=== PATIENT | male | born 1960 | race Caucasian/White ===

== ENCOUNTER 2017-05-01 16:08 | Inpatient (IN) | payer MEDICARE, MEDICAID ==
[2017-05-01] MEDS ORDERED: Sodium Chloride 0.9% 10 ML Syringe FLUSH PRN ×2 (16:43→17:44)
[2017-05-01] MEDS ORDERED: Sodium Chloride 0.9% 1,000 ML IV STA (16:43)
--- NOTE | 2017-05-01 17:39 | EDM.PDOC ---
ED HPI GENERAL MEDICAL PROBLEM - General Chief Complaint: Abdominal Pain Stated Complaint: ABDOMINAL PAIN, CARDIOMYOPATHY, DEPRESSION Time Seen by Provider: 05/01/17 16:28 Source of Information: Reports: Patient History Limitations: Reports: No Limitations - History of Present Illness INITIAL COMMENTS - FREE TEXT/NARRATIVE: The patient presents with generalized abdominal pain that started today. He has nausea and vomiting with it. He denies dysuria. He has no diarrhea and his bowel movements have been less the past couple of days. He has no fever or chills. He does not have an appendix or gallbladder. He had lymphoma many years ago and they did surgery and removed them when they did surgery. He also has been depressed for the past few weeks. He has been on medications for this and there has been no changes to them. Onset: Gradual Duration: Hour(s): (This morning) Location: Reports: Abdomen Quality: Reports: Sharp Severity: Moderate Improves with: Reports: None Worsens with: Reports: None Associated Symptoms: Reports: Nausea/Vomiting. Denies: Cough, Fever/Chills, Shortness of Breath Abdominal Pain Score (Numeric/FACES): 10 - Related Data Allergies Allergy/AdvReac Type Severity Reaction Status Date / Time Dairy Products Allergy Abdominal Verified 05/01/17 16:26 Cramps eggs Allergy Other Uncoded 05/01/17 16:27 Home Meds: Home Meds Aspirin [Halfprin] 81 mg PO BRK 07/20/16 [History] ClonazePAM [KlonoPIN] 1 mg PO TID 07/20/16 [History] Cyanocobalamin (Vitamin B-12) [Vitamin B-12] 1,000 mcg PO ACBREAKFAST 07/20/16 [ History] Esomeprazole [NexIUM] 20 mg PO BID 07/20/16 [History] Levothyroxine Sodium [Levoxyl] 88 mcg PO ACBREAKFAST 07/20/16 [History] Ramipril [Altace] 5 mg PO BID 07/20/16 [History] traMADol [Ultram] 100 mg PO Q8H PRN 07/20/16 [History] Carvedilol [Coreg] 3.125 mg PO BID 05/01/17 [History] Ferrous Sulfate [Iron] 325 mg PO DAILY 05/01/17 [History] Mirtazapine 45 mg PO BEDTIME 05/01/17 [History] Venlafaxine HCl [Venlafaxine ER] 112.5 mg PO DAILY 05/01/17 [History] Past Medical History Gastrointestinal History: Reports: GERD Neurological History: Reports: Other (See Below) Other Neuro History: restless leg syndrome Psychiatric History: Reports: Anxiety Hematologic History: Reports: Anemia, B12 Deficiency - Past Surgical History HEENT Surgical History: Reports: Tonsillectomy Social & Family History - Tobacco Use Smoking Status *Q: Never Smoker Second Hand Smoke Exposure: No - Caffeine Use Caffeine Use: Reports: None - Recreational Drug Use Recreational Drug Use: No ED ROS GENERAL - Review of Systems Review Of Systems: See Below Constitutional: Reports: No Symptoms HEENT: Reports: No Symptoms Respiratory: Reports: No Symptoms Cardiovascular: Reports: No Symptoms Endocrine: Reports: No Symptoms GI/Abdominal: Reports: Abdominal Pain, Nausea, Vomiting. Denies: Diarrhea : Reports: No Symptoms Musculoskeletal: Reports: No Symptoms ED EXAM, GI/ABD - Physical Exam Exam: See Below Exam Limited By: No Limitations General Appearance: Alert, No Apparent Distress Ears: Normal External Exam Nose: Normal Inspection Head: Atraumatic, Normocephalic Neck: Normal Inspection Respiratory/Chest: No Respiratory Distress, Lungs Clear, Normal Breath Sounds Cardiovascular: Regular Rate, Rhythm, No Edema, No Murmur GI/Abdominal Exam: Soft, No Organomegaly, No Mass, Tender (Mild to moderate generalized tenderness) Course - Vital Signs Last Recorded V/S: Last Vital Signs Temp 98.4 F 05/01/17 16:27 Pulse 71 05/01/17 16:27 Resp 18 05/01/17 16:27 BP 100/63 05/01/17 16:27 Pulse Ox 97 05/01/17 16:27 - Orders/Labs/Meds Orders: Active Orders 24 hr Category Date Time Status Peripheral IV Care [RC] . DIRECTED Care 05/01/17 16:44 Active Abdomen Pelvis w Cont [CT] Stat Exams 05/01/17 16:43 Taken Sodium Chloride 0.9% @ 75 MLS/HR(1000ml Bag) Med 05/01/17 21:00 Ordered Sodium Chloride 0.9% [Normal Saline] 1,000 ml IV ASDIRECTED Sodium Chloride 0.9% [Saline Flush] Med 05/01/17 16:43 Active 10 ml FLUSH ASDIRECTED PRN Sodium Chloride 0.9% [Saline Flush] Med 05/01/17 17:44 Active 10 ml FLUSH ONETIME PRN ED Antiemetic Medication Reflex [OM.PC] Stat Oth 05/01/17 16:44 Ordered Peripheral IV Insertion Adult [OM.PC] Stat Ot 05/01/17 16:43 Ordered Medication Orders Sodium Chloride (Normal Saline) 1,000 mls @ 75 mls/hr IV ASDIRECTED [place] Sodium Chloride (Saline Flush) 10 ml FLUSH ASDIRECTED PRN PRN Reason: Keep Vein Open Last Admin: 05/01/17 17:13 Dose: 10 ml Sodium Chloride (Saline Flush) 10 ml FLUSH ONETIME PRN PRN Reason: IV FLUSH Last Admin: 05/01/17 18:16 Dose: 10 ml Labs: Laboratory Tests 05/01/17 05/01/17 05/01/17 Range/Units 16:38 16:38 17:00 WBC 7.42 (4.23-9.07) K/mm3 RBC 5.45 (4.63-6.08) M/mm3 Hgb 16.3 (13.7-17.5) gm/L Hct 48.6 (40.1-51.0) % MCV 89.2 (79.0-92.2) fl MCH 29.9 (25.7-32.2) pg MCHC 33.5 (32.2-35.5) g/dl RDW Std Deviation 44.6 H (35.1-43.9) fL Plt Count 252 (163-337) K/mm3 MPV 10.0 (9.4-12.3) fl Neut % (Auto) 66.5 (34.0-67.9) % Lymph % (Auto) 25.2 (21.8-53.1) % [place] % (Auto) 7.0 (5.3-12.2) % Eos % (Auto) 0.9 (0.8-7.0) Baso % (Auto) 0.1 (0.1-1.2) % Neut # (Auto) 4.93 (1.78-5.38) K/mm3 Lymph # (Auto) 1.87 (1.32-3.57) K/mm3 [place] # (Auto) 0.52 (0.30-0.82) K/mm3 Eos # (Auto) 0.07 (0.04-0.54) K/mm3 Baso # (Auto) 0.01 (0.01-0.08) K/mm3 Sodium 136 (136-145) mEq/L Potassium 4.6 (3.5-5.1) mEq/L Chloride 99 (98-107) mEq/L Carbon Dioxide 30 (21-32) mEq/L Anion Gap 11.6 (5-15) BUN 16 (7-18) mg/dL Creatinine 0.8 (0.7-1.3) mg/dL Est Cr Clr Drug Dosing 83.95 mL/min Estimated GFR (MDRD) > 60 (>60) mL/min BUN/Creatinine Ratio 20.0 H (14-18) Glucose 119 H (74-106) mg/dL Calcium 9.7 (8.5-10.1) mg/dL Total Bilirubin 0.6 (0.2-1.0) mg/dL AST 45 H (15-37) U/L ALT 50 (16-63) U/L Alkaline Phosphatase 275 H (46-116) U/L Total Protein 7.1 (6.4-8.2) g/dl Albumin 4.0 (3.4-5.0) g/dl Globulin 3.1 gm/dL Albumin/Globulin Ratio 1.3 (1-2) Lipase 113 (73-393) U/L Urine Color Yellow (Yellow) Urine Appearance Clear (Clear) Urine pH 6.0 (5.0-8.0) Ur Specific [place] 1.025 (1.005-1.030) Urine Protein Trace H (Negative) Urine Glucose (UA) Negative (Negative) Urine Ketones Negative (Negative) Urine Occult Blood Negative (Negative) Urine Nitrite Negative (Negative) Urine Bilirubin Negative (Negative) Urine Urobilinogen 0.2 (0.2-1.0) Ur Leukocyte Esterase Negative (Negative) Urine RBC 0-5 (0-5) /hpf Urine WBC 0-5 (0-5) /hpf Ur Epithelial Cells Not seen (0-5) /hpf Urine Bacteria Few (FEW) /hpf Urine Mucus Few (FEW) /hpf Meds: Medications Generic Name Dose Route Start Last Admin Trade Name Freq PRN Reason Stop Dose Admin Sodium Chloride 1,000 mls @ 75 mls/hr 05/01/17 21:00 Normal Saline IV ASDIRECTED [place] Sodium Chloride 10 ml 05/01/17 16:43 05/01/17 17:13 Saline Flush FLUSH 10 ml ASDIRECTED PRN Administration Keep Vein Open Sodium Chloride 10 ml 05/01/17 17:44 05/01/17 18:16 Saline Flush FLUSH 10 ml ONETIME PRN Administration IV FLUSH Discontinued Medications Generic Name Dose Route Start Last Admin Trade Name [place] PRN Reason Stop Dose Admin Diatrizoate Meglum/Diatrizoate Sod 120 ml 05/01/17 17:44 05/01/17 18:16 Gastrografin 37% PO 05/01/17 17:45 90 ml ONETIME ONE Administration Hydromorphone HCl 1 mg 05/01/17 18:05 05/01/17 18:26 Dilaudid IVPUSH 05/01/17 18:06 1 mg ONETIME ONE Administration Sodium Chloride 1,000 mls @ 1,000 mls/hr 05/01/17 16:43 05/01/17 17:12 Normal Saline IV 05/01/17 17:42 1,000 mls/hr .BOLUS STA Administration Iopamidol 100 ml 05/01/17 17:44 05/01/17 18:16 Isovue-300 (61%) IVPUSH 05/01/17 17:45 100 ml ONETIME ONE Administration Ondansetron HCl 4 mg 05/01/17 18:07 05/01/17 18:25 Zofran IVPUSH 05/01/17 18:08 4 mg ONETIME ONE Administration - Re-Assessments/Exams Free Text/Narrative Re-Assessment/Exam: 05/01/17 19:15 I ordered an IV NS 1L bolus, zofran 4mg IV, dilaudid 1mg IV, labs, UA and CT of his abdomen and pelvis. 05/01/17 19:16 His CBC looks good. His CMP shows a glucose of 119. His AST was elevated at 45. His alk phos was elevated at 275. His lipase was negative and his UA showed no UTI. I am waiting for the CT scan. 05/01/17 20:[address] shows findings worrisome for partial small bowel obstruction, transition zone suspected in the right lower quadrant. I feel he needs to be admitted. I called Dr Wilks and she agreed to the admission. She requested an NG be placed. I talked to the patient and his mother and they agreed to the NG tube. Departure - Departure Time of Disposition: 20:55 Disposition: Refer to Observation Condition: Fair Clinical Impression: Partial small bowel obstruction - Discharge Information Referrals: Wilmer Tafoya MD [Primary Care Provider] - Forms: ED Department Discharge - My Orders Last 24 Hours: My Active Orders 05/01/17 16:43 Abdomen Pelvis w Cont [CT] Stat Sodium Chloride 0.9% [Saline Flush] 10 ml FLUSH ASDIRECTED PRN Peripheral IV Insertion Adult [OM.PC] Stat 05/01/17 16:44 Peripheral IV Care [RC] . DIRECTED ED Antiemetic Medication Reflex [OM.PC] Stat 05/01/17 17:44 Sodium Chloride 0.9% [Saline Flush] 10 ml FLUSH ONETIME PRN 05/01/17 21:00 Sodium Chloride 0.9% @ 75 MLS/HR(1000ml Bag) Sodium Chloride 0.9% [Normal Saline] 1,000 ml IV ASDIRECTED - Assessment/Plan Last 24 Hours: My Active Orders 05/01/17 16:43 Abdomen Pelvis w Cont [CT] Stat Sodium Chloride 0.9% [Saline Flush] 10 ml FLUSH ASDIRECTED PRN Peripheral IV Insertion Adult [OM.PC] Stat 05/01/17 16:44 Peripheral IV Care [RC] . DIRECTED ED Antiemetic Medication Reflex [OM.PC] Stat 05/01/17 17:44 Sodium Chloride 0.9% [Saline Flush] 10 ml FLUSH ONETIME PRN 05/01/17 21:00 Sodium Chloride 0.9% @ 75 MLS/HR(1000ml Bag) Sodium Chloride 0.9% [Normal Saline] 1,000 ml IV ASDIRECTED
[2017-05-01] MEDS ORDERED: Diatrizoate Meglumine/Diatrizoate Sodium 37% 120 ML Bottle PO ONE (17:44)
[2017-05-01] MEDS ORDERED: Iopamidol 612 MG/ML 100 ML Bottle IVPUSH ONE (17:44)
[2017-05-01] MEDS ORDERED: HYDROmorphone 1 MG/ML Syringe IVPUSH ONE (18:05)
[2017-05-01] MEDS ORDERED: Ondansetron 4 MG/2 ML SDV IVPUSH ONE (18:07)
[2017-05-01] MEDS ORDERED: Sodium Chloride 0.9% 1,000 ML IV SCH (21:00)
[2017-05-01] MEDS ORDERED: MIRTAZAPINE 45 MG PO ONE (23:20)
[2017-05-01] MEDS ORDERED: CLONAZEPAM 1 MG PO ONE (23:23)
[2017-05-01] MEDS ORDERED: Magnesium Sulfate/Water 2 GM in Premix Bag 1 BAG IV ONE (23:59)
[2017-05-02] MEDS: Ondansetron 4 MG/2 ML SDV IVPUSH PRN ×2 (02:43→06:52)
--- NOTE | 2017-05-02 07:53 | PCM.HP ---
<Catracho Hamilton - Last Filed: 05/02/17 08:44> H&P History of Present Illness - General Date of Service: 05/02/17 Admit Problem/Dx: Admission Diagnosis/Problem Admission Diagnosis/Problem Obstruction of colon Source of Information: Patient, Old Records, RN, RN Notes Reviewed History Limitations: Reports: No Limitations - History of Present Illness Initial Comments - Free Text/Narative: Mr. Otilio Ogden is a 56 -year-old male who presented to ED yesterday (05/01) with generalized abdominal pain. The patient had reportedly started earlier in the day and was accompanied by nausea and vomiting. No urinary symptoms. He denied diarrhea or constipation however he has noticed a decrease in his bowel movements over the past several days. He is on any fever or chills. He has had his appendix and gallbladder removed prior. He also had lymphoma. He reports his been depressed the past few weeks. He is medicated for this but there is been no changes. His temperature in the ED was 98.4, pulse 71, respirations 18, BP 100/63, pulse ox was 97. Labs were obtained. His white count was normal at 7.42 hemoglobin 16.3, platelet 252,000, sodium 136 , potassium 4.6, creatinine 0.8, glucose 119, AST was slightly slightly elevated at 45, PLT 50, alk phosphatase elevated at 275. His lipase was 113. UA was negative. His CT scan has yet to be formally read by radiologist, however ER M.D. reports findings were worrisome for partial small bowel obstruction with transitional zones suspected the right lower quadrant. These findings were discussed with the patient and his mother and he was subsequently admitted to [facility] with telemetry. Patient reports an NG tube was attempted to be placed last night and the patient tolerated the procedure poorly. After 2 attempts without success patient refused NG tube. Nurse reports patient is slightly developmentally delayed according to a conversation with the mother. They also report that the mother was not present during NG tube placement attempts. Patient reports multiple episodes of emesis overnight. Patient did have a BM this morning as well. Nursing also reported they have been attempting to educate patient on importance of NG tube. He was placed on nothing by mouth status. He is a patient of Dr. Tafoya. He is a DNR/DNI. Symptom Onset Date: 05/01/17 Duration of Symptoms: Reports: Constant, Getting Worse Location: Reports: Abdomen Quality: Reports: Ache Severity: Moderate Improves with: Reports: None Associated Symptoms: Reports: Nausea/Vomiting, Weakness Abdominal Pain Score (Numeric/FACES): 10 - Related Data Allergies/Adverse Reactions: Allergies Allergy/AdvReac Type Severity Reaction Status Date / Time Dairy Products Allergy Abdominal Verified 05/01/17 16:26 Cramps egg Allergy Cannot Verified 05/02/17 11:41 Remember Home Medications: Home Meds Aspirin [Halfprin] 81 mg PO BRK 07/20/16 [History] ClonazePAM [KlonoPIN] 1 mg PO TID 07/20/16 [History] Cyanocobalamin (Vitamin B-12) [Vitamin B-12] 1,000 mcg PO ACBREAKFAST 07/20/16 [ History] Esomeprazole [NexIUM] 20 mg PO BID 07/20/16 [History] Levothyroxine Sodium [Levoxyl] 88 mcg PO ACBREAKFAST 07/20/16 [History] Ramipril [Altace] 5 mg PO BID 07/20/16 [History] traMADol [Ultram] 100 mg PO Q8H PRN 07/20/16 [History] Carvedilol [Coreg] 3.125 mg PO BID 05/01/17 [History] Ferrous Sulfate [Iron] 325 mg PO DAILY 05/01/17 [History] Mirtazapine 45 mg PO BEDTIME 05/01/17 [History] Venlafaxine HCl [Venlafaxine ER] 112.5 mg PO DAILY 05/01/17 [History] Past Medical History HEENT History: Reports: Other (See Below) 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 Cardiovascular History: Reports: Cardiomyopathy, Other (See Below) Other Cardiovascular History: apex damage Gastrointestinal History: Reports: GERD, Hemorrhoids Musculoskeletal History: Reports: Other (See Below) Other Musculoskeletal History: scoliosis Neurological History: Reports: Other (See Below) Other Neuro History: restless leg syndrome Psychiatric History: Reports: Anxiety, Autism, Depression, Panic Attack Endocrine/Metabolic History: Reports: Hypothyroidism Hematologic History: Reports: Anemia, B12 Deficiency Oncologic (Cancer) History: Reports: Lymphoma - Past Surgical History HEENT Surgical History: Reports: Tonsillectomy GI Surgical History: Reports: Small Bowel, Other (See Below) Other GI Surgeries/Procedures: removed 20 inches of small bowel d/t lymphoma Other Oncologic Surgeries/Procedures: lymphoma removals twice. Social & Family History - Family History Family Medical History: Noncontributory - Tobacco Use Smoking Status *Q: Never Smoker Second Hand Smoke Exposure: No - Caffeine Use Caffeine Use: Reports: None - Recreational Drug Use Recreational Drug Use: No H&P Review of Systems - Review of Systems: Review Of Systems: See Below General: Reports: Weakness HEENT: Reports: No Symptoms Pulmonary: Reports: No Symptoms Cardiovascular: Reports: No Symptoms Gastrointestinal: Reports: Abdominal Pain, Nausea, Vomiting. Denies: Black Stool, Bloody Stool, Constipation, Diarrhea, Distension Genitourinary: Reports: No Symptoms Musculoskeletal: Reports: No Symptoms Skin: Reports: No Symptoms Psychiatric: Reports: No Symptoms Neurological: Reports: No Symptoms Hematologic/Lymphatic: Reports: No Symptoms Immunologic: Reports: No Symptoms Exam - Exam Exam: See Below (Patient is lying in bed. He is slighlty pale but does not apear to be in any acute distress.) - Vital Signs Vital Signs: Last Vital Signs Temp 98.1 F 05/02/17 03:45 Pulse 86 05/02/17 03:45 Resp 16 05/02/17 03:45 BP 104/70 05/02/17 03:45 Pulse Ox 94 L 05/02/17 03:45 Weight: 106.186 kg - Exam Quality Assessment: DVT Prophylaxis General: Alert, Oriented, Cooperative HEENT: Conjunctiva Clear, Hearing Intact, Mucosa Moist & [place], Nares Patent, Posterior Pharynx Clear, Pupils Equal, Pupils Reactive Neck: Supple, Trachea Midline. No: Lymphadenopathy, JVD Lungs: Clear to Auscultation, Normal Respiratory Effort Cardiovascular: Regular Rate, Regular Rhythm GI/Abdominal Exam: Soft, No Organomegaly, No Distention, No Mass, Guarding, Tender (generalized ), Abnormal Bowel Sounds (hyperactive ), Other (Scar on RLQ. Patient reports this is from prior lymphoma surgery ) (Male) Exam: Deferred Rectal (Males) Exam: Deferred Back Exam: Normal Inspection Extremities: Normal Inspection, Normal Range of Motion, Non-Tender, No Pedal Edema, Normal Capillary Refill Peripheral Pulses: 2+: Radial (L), Radial (R), Posterior Tibial (L), Posterior Tibial (R), Dorsalis Pedis (L), Dorsalis Pedis (R) Skin: Warm, Dry, Intact Neurological: Cranial Nerves Intact, Strength Equal Bilateral, Normal Speech, Normal Tone, Sensation Intact Neuro Extensive - Mental Status: Alert, Oriented x3, Normal Mood/Affect, Normal Cognition, Memory Intact Psychiatric: Alert, Normal Affect, Normal Mood - Patient Data Lab Results Last 24 hrs: Laboratory Results - last 24 hr 05/02/17 05/02/17 Range/Units 05:49 05:49 WBC 11.66 H (4.23-9.07) K/mm3 RBC 5.66 (4.63-6.08) M/mm3 Hgb 16.9 (13.7-17.5) gm/L Hct 49.3 (40.1-51.0) % MCV 87.1 (79.0-92.2) fl MCH 29.9 (25.7-32.2) pg MCHC 34.3 (32.2-35.5) g/dl RDW Std Deviation 43.7 (35.1-43.9) fL Plt Count 275 (163-337) K/mm3 MPV 9.6 (9.4-12.3) fl Sodium 132 L (136-145) mEq/L Potassium 4.3 (3.5-5.1) mEq/L Chloride 96 L (98-107) mEq/L Carbon Dioxide 23 (21-32) mEq/L Anion Gap 17.3 H (5-15) BUN 22 H (7-18) mg/dL Creatinine 0.9 (0.7-1.3) mg/dL Est Cr Clr Drug Dosing 98.20 mL/min Estimated GFR (MDRD) > 60 (>60) mL/min BUN/Creatinine Ratio 24.4 H (14-18) Glucose 141 H (74-106) mg/dL Calcium 9.5 (8.5-10.1) mg/dL Magnesium 2.4 (1.8-2.4) mg/dl C-Reactive Protein 0.9 (<1.0) mg/dL Result Diagrams: 05/02/17 05:49 05/02/17 05:49 *Q Meaningful Use (ADM) - VTE *Q VTE Criteria *Q: - Stroke *Q Stroke Criteria *Q: - AMI *Q AMI Criteria *Q: - Problem List (1) Partial small bowel obstruction SNOMED Code(s): 381515121 ICD Code: K56.69 - OTHER INTESTINAL OBSTRUCTION Status: Acute Priority: High Current Visit: Yes (2) Anxiety about health SNOMED Code(s): 805486616 ICD Code: F41.8 - OTHER SPECIFIED ANXIETY DISORDERS Status: Acute Priority: Medium Current Visit: Yes (3) Hypothyroidism SNOMED Code(s): 10184520 ICD Code: E03.9 - HYPOTHYROIDISM, UNSPECIFIED Status: Chronic Priority: Low Current Visit: Yes QualifierTitle: Hypothyroidism type: unspecified Qualified Code(s): E03.9 - Hypothyroidism, unspecified (4) Cardiomyopathy SNOMED Code(s): 21250877 ICD Code: I42.9 - CARDIOMYOPATHY, UNSPECIFIED Status: Chronic Priority: Low Current Visit: No (5) Anemia SNOMED Code(s): 070479517 ICD Code: D64.9 - ANEMIA, UNSPECIFIED Status: Chronic Priority: Low Current Visit: No QualifierTitle: Anemia type: unspecified type Qualified Code(s): D64.9 - Anemia, unspecified (6) Restless leg syndrome SNOMED Code(s): 41885712 ICD Code: G25.81 - RESTLESS LEGS SYNDROME Status: Chronic Priority: Low Current Visit: No Problem List Initiated/Reviewed/Updated: Yes Orders Last 24hrs: Active Orders 24 hr Category Date Time Status Patient Status [ADT] Routine ADT 05/01/17 21:05 Active Antiembolic Devices [RC] 19,21 Care 05/02/17 00:01 Active Up ad Torrie [RC] ASDIRECTED Care 05/01/17 23:58 Active Consult to Case Management [CONS] Routine Cons 05/02/17 00:03 Active OT Evaluation and Treatment [CONS] Routine Cons 05/02/17 00:03 Active PT Evaluation and Treatment [CONS] Routine Cons 05/02/17 00:03 Active NPO [Nothing Per Oral Diet] [DIET] Diet 05/02/17 Breakfast Active CBC WITH MANUAL DIFF [HEME] Routine Lab 05/02/17 05:49 Results Enoxaparin [Lovenox] Med 05/02/17 09:00 Active 40 mg SUBCUT DAILY LORazepam [Ativan] Med 05/02/17 00:02 Active 1 mg IVPUSH Q8H PRN Ondansetron [Zofran] Med 05/02/17 02:35 Active 4 mg IVPUSH Q4H PRN K Pad [Heat Therapy] [OM.PC] Routine Oth 05/02/17 00:11 Ordered BETSY Hose [Antiembolic Hose] [OM.PC] Routine Oth 05/02/17 00:01 Ordered Resuscitation Status Routine Resus Stat 05/02/17 00:52 Ordered Medication Orders Enoxaparin Sodium (Lovenox) 40 mg SUBCUT DAILY [place] Sodium Chloride (Normal Saline) 1,000 mls @ 75 mls/hr IV ASDIRECTED [place] Last Admin: 05/01/17 21:13 Dose: 75 mls/hr Lorazepam (Ativan) 1 mg IVPUSH Q8H PRN PRN Reason: Anxiety Ondansetron HCl (Zofran) 4 mg IVPUSH Q4H PRN PRN Reason: Nausea Last Admin: 05/02/17 06:52 Dose: 4 mg Admin: 05/02/17 02:43 Dose: 4 mg Sodium Chloride (Saline Flush) 10 ml FLUSH ASDIRECTED PRN PRN Reason: Keep Vein Open Last Admin: 05/01/17 17:13 Dose: 10 ml Assessment/Plan Comment:: I/P Acute: Partial small bowl obstruction -WBC 7.42 (05/01/17) -->11.66 _CRP 0.9 -NPO -Had lengthy discussion with patient about NG tube. He has had one in the past and remembers it being horrible. Discussed importance in plan of treatment and he agrees to allow placement as long as his mother is here when it occurs. Will recovery coach mother and patient again prior to placement of tube. 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 - Ativan as indicated Chronic: Hypothyroidism Vitamin B12 deficiency Anemia Cardiomyopathy Restless leg syndrome Plan: SW/CM for discharge planning PT/OT as indicated Routine labs Other orders as indicated above Code Status: DNR/DNI <Su Wilks - Last Filed: 05/02/17 16:04> Exam - Vital Signs Vital Signs: Last Vital Signs Temp 36.5 C 05/02/17 16:01 Pulse 110 H 05/02/17 16:01 Resp 20 05/02/17 16:01 BP 100/63 05/02/17 16:01 Pulse Ox 96 05/02/17 16:01 - Patient Data Result Diagrams: 05/02/17 05:49 05/02/17 05:49 *Q Meaningful Use (ADM) - VTE *Q VTE Criteria *Q: - Stroke *Q Stroke Criteria *Q: - AMI *Q AMI Criteria *Q: Orders Last 24hrs: Active Orders 24 hr Category Date Time Status Notify Provider Consults [RC] ASDIRECTED Care 05/02/17 13:18 Active Consult to Physician [CONS] Routine Cons 05/02/17 13:14 Active Abdomen 2V AP Flat Upright [CR] Routine Exams 05/03/17 07:00 Ordered Bisacodyl [Dulcolax] Med 05/02/17 14:26 Active 10 mg RECTAL BID PRN Bisacodyl [Dulcolax] Med 05/02/17 14:45 Active 10 mg RECTAL DAILY Carvedilol [Coreg] Med 05/02/17 21:00 Active 3.125 mg PO BID ClonazePAM [KlonoPIN] Med 05/02/17 15:00 Active 1 mg PO TID Levothyroxine [Synthroid] Med 05/03/17 06:00 Active 88 mcg PO ACBREAKFAST Mirtazapine [Remeron] Med 05/02/17 21:00 Active 45 mg PO BEDTIME Venlafaxine [Effexor XR] Med 05/03/17 09:00 Active 112.5 mg PO DAILY Medication Orders Benzocaine (Hurricaine 20% [place]) 0 ml MUCMEM Q4HR PRN PRN Reason: Pain Last Admin: 05/02/17 11:42 Dose: 3 sprays Bisacodyl (Dulcolax) 10 mg RECTAL BID PRN PRN Reason: Constipation Bisacodyl (Dulcolax) 10 mg RECTAL DAILY [place] Carvedilol (Coreg) 3.125 mg PO BID [place] Clonazepam (Klonopin) 1 mg PO TID [place] Enoxaparin Sodium (Lovenox) 40 mg SUBCUT DAILY [place] Hydralazine HCl (Apresoline) 20 mg IVPUSH Q4H PRN PRN Reason: Hypertension Sodium Chloride (Normal Saline) 1,000 mls @ 75 mls/hr IV ASDIRECTED [place] Last Admin: 05/01/17 21:13 Dose: 75 mls/hr Sodium Chloride (Normal Saline) 1,000 mls @ 150 mls/hr IV ASDIRECTED [place] Stop: 05/02/17 17:09 Last Admin: 05/02/17 10:52 Dose: 150 mls/hr Levothyroxine Sodium (Synthroid) 88 mcg PO ACBREAKFAST [place] Lorazepam (Ativan) 1 mg IVPUSH Q8H PRN PRN Reason: Anxiety Metoprolol Tartrate (Lopressor) 5 mg IVPUSH Q4H PRN PRN Reason: Tachycardia Mirtazapine (Remeron) 45 mg PO BEDTIME [place] Ondansetron HCl (Zofran) 4 mg IVPUSH Q4H PRN PRN Reason: Nausea Last Admin: 05/02/17 06:52 Dose: 4 mg Admin: 05/02/17 02:43 Dose: 4 mg Sodium Chloride (Saline Flush) 10 ml FLUSH ASDIRECTED PRN PRN Reason: Keep Vein Open Last Admin: 05/01/17 17:13 Dose: 10 ml Venlafaxine HCl (Effexor Xr) 112.5 mg PO DAILY [facility] Assessment/Plan Comment:: Agree with assessment and plan; will attempt to treat constipation and hold NGT for now.
--- NOTE | 2017-05-02 08:33 | CT ---
CT abdomen and pelvis Technique: Multiple axial sections were obtained from above the dome of the diaphragm inferiorly through the pubic symphysis. Intravenous and oral contrast was utilized. 1 hour delayed images were obtained to hopefully obtain better distal contrast opacification. Comparison: Previous CT abdomen and pelvis exam of 10/30/13. Findings: Emphysematous change is noted within both lung bases. Minimal subpleural nodular density is identified within the left base believed to be incidental. Insignificant bilateral pleural effusions are noted. Liver shows no focal abnormality. Spleen appears within normal limits. Adrenal glands show no nodule. Gallbladder shows no calcified gallstones. Kidneys show symmetric contrast enhancement without hydronephrosis or mass. Pancreas is within normal limits. Aorta shows no aneurysmal dilatation. No retroperitoneal adenopathy is seen. Surgical anastomotic sutures are seen within the right lower abdomen. Multiple dilated loops of small bowel are seen which contain fecal material. Even after delayed imaging there is poor opacification of distal bowel. Distal bowel does not appear to be dilated. No pelvic mass or adenopathy is seen. Delayed images show contrast within the distal ureters and within the bladder. Bone window settings were reviewed which show disc space narrowing and vacuum phenomena within the L5-S1 disc. Small disc protrusion noted into the superior endplate of L4 which is incidental. Impression: 1. Dilated small bowel containing stool. Findings are suspicious for mid small bowel obstruction. Etiology is not seen and findings most likely are due to adhesion. 2. Other nonacute findings as described above. Diagnostic code #3 Agree with preliminary report issued by [employer] ([facility] preliminary report dictated on 05/01/17, 9:40 PM Central Time)
[2017-05-02] MEDS ORDERED: Sodium Chloride 0.9% 1,000 ML IV SCH ×2 (08:45→10:30)
[2017-05-02] MEDS ORDERED: Enoxaparin 40 MG/0.4 ML Syringe SUBCUT SCH (09:00)
[2017-05-02] MEDS ORDERED: LORazepam 2 MG/ML MDV IVPUSH ONE (09:41)
[2017-05-02] MEDS ORDERED: Benzocaine 20% Oral Spray 59.2 ML Canister MUCMEM PRN (10:55)
[2017-05-02] MEDS ORDERED: Phenylephrine 0.5% Nasal Spray 15 ML Bot NASBOTH ONE (10:56)
[2017-05-02] MEDS ORDERED: Ketorolac 15 MG/ML SDV IVPUSH ONE (10:59)
[2017-05-02] MEDS ORDERED: Metoprolol Tartrate 5 MG/5 ML SDV IVPUSH PRN (11:03)
[2017-05-02] MEDS ORDERED: hydrALAZINE 20 MG/ML SDV IVPUSH PRN (11:13)
--- NOTE | 2017-05-02 12:46 | CR ---
Chest: Frontal view of the chest was obtained. Nasogastric tube is seen which ascends down the left mainstem bronchus into the lung. Lungs otherwise are clear. Heart size and mediastinum are normal. Bony structures are grossly intact. Impression: 1. Tip of nasogastric tube descends down the left mainstem bronchus into the left lung. This should be removed and repositioned. Diagnostic code #5
--- NOTE | 2017-05-02 13:14 | PCM.SN ---
- Free Text/Narrative Note: Was notified by staff early this a.m. the patient had multiple bolts of emesis throughout the night. Nursing had attempted NG tube placement 2 in the ER with no success. NG tube placement was attempted here on floor by ICU nurse and ER physician Dr. Garcia. Confirmatory chest x-ray showed tip of the tube in left lung. Discussed repositioning tube versus just pulling tube with Dr. Garcia. Patient has had no emesis since this morning. We felt it was reasonable to just discontinue NG tube and monitor for status change. Tube pulled. Lung sounds in all fuentes remain unchanged. Oxygen saturation at 94%. This is his normal base baseline since admission. Nursing will continue to monitor vital signs. Will also put in consult for general surgeon Dr. Banuelos.
[2017-05-02] MEDS ORDERED: Bisacodyl 10 MG Supp RECTAL PRN (14:26)
[2017-05-02] MEDS ORDERED: Bisacodyl 10 MG Supp RECTAL SCH (14:45)
--- NOTE | 2017-05-02 14:45 | PCM.CONS ---
H&P History of Present Illness - General Date of Service: 05/02/17 Admit Problem/Dx: Admission Diagnosis/Problem Admission Diagnosis/Problem Obstruction of colon Source of Information: Patient, Provider History Limitations: Reports: No Limitations - History of Present Illness Initial Comments - Free Text/Narative: 56-year-old male complained of nausea and emesis. He was brought to the emergency room last night and was admitted after a an abdominal CT scan showed a possible mid small bowel obstruction. Small bowel had fecal material and the colon was full of fecal material. I was asked to see him by the hospitalist service to follow along with his course. Multiple attempts at NG tube placement were unsuccessful. The patient stated that he has no abdominal pain and had a bowel movement 20 minutes before my visit at the bedside. He wasn't quite sure if he passed gas. Abdominal Pain Score (Numeric/FACES): 10 - Related Data Allergies/Adverse Reactions: Allergies Allergy/AdvReac Type Severity Reaction Status Date / Time Dairy Products Allergy Abdominal Verified 05/01/17 16:26 Cramps egg Allergy Cannot Verified 05/02/17 11:41 Remember Home Medications: Home Meds Aspirin [Halfprin] 81 mg PO BRK 07/20/16 [History] ClonazePAM [KlonoPIN] 1 mg PO TID 07/20/16 [History] Cyanocobalamin (Vitamin B-12) [Vitamin B-12] 1,000 mcg PO ACBREAKFAST 07/20/16 [ History] Esomeprazole [NexIUM] 20 mg PO BID 07/20/16 [History] Levothyroxine Sodium [Levoxyl] 88 mcg PO ACBREAKFAST 07/20/16 [History] Ramipril [Altace] 5 mg PO BID 07/20/16 [History] traMADol [Ultram] 100 mg PO Q8H PRN 07/20/16 [History] Carvedilol [Coreg] 3.125 mg PO BID 05/01/17 [History] Ferrous Sulfate [Iron] 325 mg PO DAILY 05/01/17 [History] Mirtazapine 45 mg PO BEDTIME 05/01/17 [History] Venlafaxine HCl [Venlafaxine ER] 112.5 mg PO DAILY 05/01/17 [History] Past Medical History HEENT History: Reports: Other (See Below) 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 Cardiovascular History: Reports: Cardiomyopathy, Other (See Below) Other Cardiovascular History: apex damage Gastrointestinal History: Reports: GERD, Hemorrhoids Musculoskeletal History: Reports: Other (See Below) Other Musculoskeletal History: scoliosis Neurological History: Reports: Other (See Below) Other Neuro History: restless leg syndrome Psychiatric History: Reports: Anxiety, Autism, Depression, Panic Attack Endocrine/Metabolic History: Reports: Hypothyroidism Hematologic History: Reports: Anemia, B12 Deficiency Oncologic (Cancer) History: Reports: Lymphoma - Past Surgical History HEENT Surgical History: Reports: Tonsillectomy GI Surgical History: Reports: Small Bowel, Other (See Below) Other GI Surgeries/Procedures: removed 20 inches of small bowel d/t lymphoma Other Oncologic Surgeries/Procedures: lymphoma removals twice. Social & Family History - Family History Family Medical History: Noncontributory - Tobacco Use Smoking Status *Q: Never Smoker Second Hand Smoke Exposure: No - Caffeine Use Caffeine Use: Reports: None - Recreational Drug Use Recreational Drug Use: No H&P Review of Systems - Review of Systems: Review Of Systems: ROS reveals no pertinent complaints other than HPI. Exam - Exam Exam: See Below - Vital Signs Vital Signs: Last Vital Signs Temp 36.9 C 05/02/17 07:44 Pulse 92 05/02/17 07:44 Resp 20 05/02/17 07:44 BP 105/69 05/02/17 07:44 Pulse Ox 94 L 05/02/17 07:44 Weight: 60.328 kg - Exam General: Alert, Oriented, Cooperative Neck: Supple, Trachea Midline Lungs: Normal Respiratory Effort Cardiovascular: Regular Rate, Regular Rhythm, Normal S1, Normal S2 GI/Abdominal Exam: Soft, Non-Tender, No Distention (Male) Exam: Deferred Rectal (Males) Exam: Deferred Back Exam: Full Range of Motion Skin: Warm Neuro Extensive - Mental Status: Alert, Oriented x3, Normal Mood/Affect Psychiatric: Alert, Normal Affect - Patient Data Result Diagrams: 05/02/17 05:49 05/02/17 05:49 Consult PN Assessment/Plan Procedures: Procedures COMPLETE CBC W/AUTO DIFF WBC (07/20/16) COMPREHEN METABOLIC PANEL (07/20/16) ELECTROCARDIOGRAM TRACING (07/20/16) EMERGENCY DEPT VISIT (07/20/16) ROUTINE VENIPUNCTURE (07/20/16) URINALYSIS AUTO W/SCOPE (07/20/16) (1) Partial small bowel obstruction SNOMED Code(s): 713753554 Code(s): K56.69 - OTHER INTESTINAL OBSTRUCTION Priority: Medium Current Visit: Yes Problem List Initiated/Reviewed/Updated: Yes My Orders Last 24 Hours: My Active Orders 05/02/17 14:45 Bisacodyl [Dulcolax] 10 mg RECTAL DAILY imp: Possible partial small bowel obstruction. On imaging the small and large bowel contain a lot of stool. This may be the etiology. He is having bowel movements. Time will tell if this is just distal evacuation alone. Passage of gas is joseph. plan: Hold off on NG tube decompression for now. I will administer Dulcolax suppositories. I will follow up with him tomorrow.
[2017-05-02] MEDS: ClonazePAM 1 MG Tab PO SCH ×2 (16:39→21:54)
[2017-05-02] MEDS: Sodium Chloride 0.9% 1,000 ML IV SCH (17:38)
[2017-05-02] MEDS: Mirtazapine 15 MG Tab PO SCH (21:55)
[2017-05-02] MEDS: Carvedilol 3.125 MG Tab PO SCH (21:55)
[2017-05-03] MEDS: Ondansetron 4 MG/2 ML SDV IVPUSH PRN ×2 (04:33→09:44)
[2017-05-03] MEDS: Levothyroxine 88 MCG Tab PO SCH (05:36)
[2017-05-03] MEDS: Carvedilol 3.125 MG Tab PO SCH ×2 (08:10→21:11)
[2017-05-03] MEDS: Enoxaparin 40 MG/0.4 ML Syringe SUBCUT SCH (08:11)
[2017-05-03] MEDS: ClonazePAM 1 MG Tab PO SCH ×3 (08:11→21:06)
[2017-05-03] MEDS ORDERED: Venlafaxine 37.5 MG Cap.ER PO SCH (09:00)
--- NOTE | 2017-05-03 09:18 | PCM.CONSN ---
- General Info Date of Service: 05/03/17 Functional Status: Reports: Tolerating Diet, Ambulating, Urinating - Review of Systems Gastrointestinal: Reports: Vomiting (Self-induced according to nursing staff with patient inserting his fingers in his throat) - Patient Data Vitals - Most Recent: Last Vital Signs Temp 36.6 C 05/03/17 07:38 Pulse 96 05/03/17 08:10 Resp 18 05/03/17 07:38 BP 98/63 05/03/17 08:10 Pulse Ox 94 L 05/03/17 07:38 Weight - Most Recent: 59.421 kg I&O - Last 24 Hours: Intake & Output 05/02/17 05/03/17 05/03/17 22:59 06:59 14:59 Intake Total 1570 936 Output Total 100 1700 Balance 1470 -764 Med Orders - Current: Current Medications Benzocaine (Hurricaine 20% [place]) 0 ml MUCMEM Q4HR PRN PRN Reason: Pain Last Admin: 05/02/17 11:42 Dose: 3 sprays Bisacodyl (Dulcolax) 10 mg RECTAL BID PRN PRN Reason: Constipation Carvedilol (Coreg) 3.125 mg PO BID [facility] Last Admin: 05/03/17 08:10 Dose: 3.125 mg Clonazepam (Klonopin) 1 mg PO TID [facility] Last Admin: 05/03/17 08:11 Dose: 1 mg Enoxaparin Sodium (Lovenox) 40 mg SUBCUT DAILY [facility] Last Admin: 05/03/17 08:11 Dose: 40 mg Hydralazine HCl (Apresoline) 20 mg IVPUSH Q4H PRN PRN Reason: Hypertension Sodium Chloride (Normal Saline) 1,000 mls @ 40 mls/hr IV ASDIRECTED [facility] Last Admin: 05/02/17 17:38 Dose: 40 mls/hr Levothyroxine Sodium (Synthroid) 88 mcg PO ACBREAKFAST [facility] Last Admin: 05/03/17 05:36 Dose: Not Given Lorazepam (Ativan) 1 mg IVPUSH Q8H PRN PRN Reason: Anxiety Metoprolol Tartrate (Lopressor) 5 mg IVPUSH Q4H PRN PRN Reason: Tachycardia Mirtazapine (Remeron) 45 mg PO BEDTIME [facility] Last Admin: 05/02/17 21:55 Dose: 45 mg Ondansetron HCl (Zofran) 4 mg IVPUSH Q4H PRN PRN Reason: Nausea Last Admin: 05/03/17 04:33 Dose: 4 mg Sodium Chloride (Saline Flush) 10 ml FLUSH ASDIRECTED PRN PRN Reason: Keep Vein Open Last Admin: 05/01/17 17:13 Dose: 10 ml Venlafaxine HCl (Effexor Xr) 112.5 mg PO DAILY [facility] Last Admin: 05/03/17 08:11 Dose: 112.5 mg Discontinued Medications Bisacodyl (Dulcolax) 10 mg RECTAL DAILY [facility] Last Admin: 05/02/17 16:35 Dose: Not Given Clonazepam (Klonopin) 1 mg PO ONETIME ONE Stop: 05/01/17 23:24 Last Admin: 05/01/17 23:35 Dose: 1 mg Diatrizoate Meglum/Diatrizoate Sod (Gastrografin 37%) 120 ml PO ONETIME ONE Stop: 05/01/17 17:45 Last Admin: 05/01/17 18:16 Dose: 90 ml Enoxaparin Sodium (Lovenox) 40 mg SUBCUT DAILY [facility] Last Admin: 05/02/17 10:51 Dose: 40 mg Hydromorphone HCl (Dilaudid) 1 mg IVPUSH ONETIME ONE Stop: 05/01/17 18:06 Last Admin: 05/01/17 18:26 Dose: 1 mg Sodium Chloride (Normal Saline) 1,000 mls @ 1,000 mls/hr IV .BOLUS STA Stop: 05/01/17 17:42 Last Admin: 05/01/17 17:12 Dose: 1,000 mls/hr Sodium Chloride (Normal Saline) 1,000 mls @ 75 mls/hr IV ASDIRECTED [facility] Last Admin: 05/01/17 21:13 Dose: 75 mls/hr Magnesium Sulfate 2 gm/ Premix 50 mls @ 25 mls/hr IV ONETIME ONE Stop: 05/02/17 01:58 Last Admin: 05/02/17 00:27 Dose: 25 mls/hr Sodium Chloride (Normal Saline) 1,000 mls @ 100 mls/hr IV ASDIRECTED [facility] Stop: 05/02/17 18:00 Sodium Chloride (Normal Saline) 1,000 mls @ 150 mls/hr IV ASDIRECTED [place] Stop: 05/02/17 17:09 Last Admin: 05/02/17 10:52 Dose: 150 mls/hr Iopamidol (Isovue-300 (61%)) 100 ml IVPUSH ONETIME ONE Stop: 05/01/17 17:45 Last Admin: 05/01/17 18:16 Dose: 100 ml Ketorolac Tromethamine (Toradol) 15 mg IVPUSH ONETIME ONE Stop: 05/02/17 11:00 Last Admin: 05/02/17 11:37 Dose: 15 mg Lorazepam (Ativan) 1 mg IVPUSH ONETIME ONE Stop: 05/02/17 09:42 Last Admin: 05/02/17 10:01 Dose: 1 mg Mirtazapine 45mg Tab (Own Med) 1 each PO ONETIME ONE Stop: 05/01/17 23:21 Last Admin: 05/01/17 23:35 Dose: 1 each Ondansetron HCl (Zofran) 4 mg IVPUSH ONETIME ONE Stop: 05/01/17 18:08 Last Admin: 05/01/17 18:25 Dose: 4 mg Phenylephrine HCl (Raymond-Synephrine 0.25% Mild Nasal [place]) 0 ml NASBOTH ONETIME ONE Stop: 05/02/17 11:46 Last Admin: 05/02/17 11:44 Dose: 3 spray Sodium Chloride (Saline Flush) 10 ml FLUSH ONETIME PRN PRN Reason: IV FLUSH Last Admin: 05/01/17 18:16 Dose: 10 ml - Exam GI/Abdominal Exam: Soft, Non-Tender, No Distention Consult PN Assessment/Plan Procedures: Procedures COMPLETE CBC W/AUTO DIFF WBC (07/20/16) COMPREHEN METABOLIC PANEL (07/20/16) ELECTROCARDIOGRAM TRACING (07/20/16) EMERGENCY DEPT VISIT (07/20/16) ROUTINE VENIPUNCTURE (07/20/16) URINALYSIS AUTO W/SCOPE (07/20/16) (1) Partial small bowel obstruction SNOMED Code(s): 793074879 Code(s): K56.69 - OTHER INTESTINAL OBSTRUCTION Priority: Medium Current Visit: Yes Problem List Initiated/Reviewed/Updated: Yes My Orders Last 24 Hours: My Active Orders 05/02/17 16:45 Sodium Chloride 0.9% [Normal Saline] 1,000 ml IV ASDIRECTED 05/02/17 Dinner Clear Liquid Diet [DIET] imp: Passing gas and stool. Tolerating his diet. His self-induced vomiting is a psychological/psychiatric ramification of his underlying major affective disorder--depression. His mother states that he has a history of weight loss which is unexplained. It may be related to his bulimia, but he may be a candidate for a weight loss evaluation which can include panendoscopy. Another consideration would be an upper GI with small bowel follow-through. His last colonoscopy was 7 years ago and by report from his mother was within normal limits. Plan: plan: Return of GI function. Will sign off.
--- NOTE | 2017-05-03 09:28 | PCM.PN ---
- General Info Date of Service: 05/03/17 Functional Status: Reports: Tolerating Diet, Other (self induced vomiting) - Review of Systems General: Reports: No Symptoms HEENT: Reports: No Symptoms Pulmonary: Reports: No Symptoms Cardiovascular: Reports: No Symptoms Gastrointestinal: Reports: No Symptoms Genitourinary: Reports: No Symptoms Musculoskeletal: Reports: No Symptoms Skin: Reports: No Symptoms Neurological: Reports: No Symptoms Psychiatric: Reports: No Symptoms - Patient Data Vitals - Most Recent: Last Vital Signs Temp 36.6 C 05/03/17 07:38 Pulse 96 05/03/17 08:10 Resp 18 05/03/17 07:38 BP 98/63 05/03/17 08:10 Pulse Ox 94 L 05/03/17 07:38 Weight - Most Recent: 59.421 kg I&O - Last 24 Hours: Intake & Output 05/02/17 05/03/17 05/03/17 22:59 06:59 14:59 Intake Total 1570 936 Output Total 100 1700 Balance 1470 -764 Med Orders - Current: Current Medications Benzocaine (Hurricaine 20% [place]) 0 ml MUCMEM Q4HR PRN PRN Reason: Pain Last Admin: 05/02/17 11:42 Dose: 3 sprays Bisacodyl (Dulcolax) 10 mg RECTAL BID PRN PRN Reason: Constipation Carvedilol (Coreg) 3.125 mg PO BID [facility] Last Admin: 05/03/17 08:10 Dose: 3.125 mg Clonazepam (Klonopin) 1 mg PO TID [facility] Last Admin: 05/03/17 08:11 Dose: 1 mg Enoxaparin Sodium (Lovenox) 40 mg SUBCUT DAILY [facility] Last Admin: 05/03/17 08:11 Dose: 40 mg Hydralazine HCl (Apresoline) 20 mg IVPUSH Q4H PRN PRN Reason: Hypertension Sodium Chloride (Normal Saline) 1,000 mls @ 40 mls/hr IV ASDIRECTED [facility] Last Admin: 05/02/17 17:38 Dose: 40 mls/hr Levothyroxine Sodium (Synthroid) 88 mcg PO ACBREAKFAST [facility] Last Admin: 05/03/17 05:36 Dose: Not Given Lorazepam (Ativan) 1 mg IVPUSH Q8H PRN PRN Reason: Anxiety Metoprolol Tartrate (Lopressor) 5 mg IVPUSH Q4H PRN PRN Reason: Tachycardia Mirtazapine (Remeron) 45 mg PO BEDTIME [facility] Last Admin: 05/02/17 21:55 Dose: 45 mg Ondansetron HCl (Zofran) 4 mg IVPUSH Q4H PRN PRN Reason: Nausea Last Admin: 05/03/17 04:33 Dose: 4 mg Sodium Chloride (Saline Flush) 10 ml FLUSH ASDIRECTED PRN PRN Reason: Keep Vein Open Last Admin: 05/01/17 17:13 Dose: 10 ml Venlafaxine HCl (Effexor Xr) 112.5 mg PO DAILY [facility] Last Admin: 05/03/17 08:11 Dose: 112.5 mg Discontinued Medications Bisacodyl (Dulcolax) 10 mg RECTAL DAILY [facility] Last Admin: 05/02/17 16:35 Dose: Not Given Clonazepam (Klonopin) 1 mg PO ONETIME ONE Stop: 05/01/17 23:24 Last Admin: 05/01/17 23:35 Dose: 1 mg Diatrizoate Meglum/Diatrizoate Sod (Gastrografin 37%) 120 ml PO ONETIME ONE Stop: 05/01/17 17:45 Last Admin: 05/01/17 18:16 Dose: 90 ml Enoxaparin Sodium (Lovenox) 40 mg SUBCUT DAILY [facility] Last Admin: 05/02/17 10:51 Dose: 40 mg Hydromorphone HCl (Dilaudid) 1 mg IVPUSH ONETIME ONE Stop: 05/01/17 18:06 Last Admin: 05/01/17 18:26 Dose: 1 mg Sodium Chloride (Normal Saline) 1,000 mls @ 1,000 mls/hr IV .BOLUS STA Stop: 05/01/17 17:42 Last Admin: 05/01/17 17:12 Dose: 1,000 mls/hr Sodium Chloride (Normal Saline) 1,000 mls @ 75 mls/hr IV ASDIRECTED [facility] Last Admin: 05/01/17 21:13 Dose: 75 mls/hr Magnesium Sulfate 2 gm/ Premix 50 mls @ 25 mls/hr IV ONETIME ONE Stop: 05/02/17 01:58 Last Admin: 05/02/17 00:27 Dose: 25 mls/hr Sodium Chloride (Normal Saline) 1,000 mls @ 100 mls/hr IV ASDIRECTED [place] Stop: 05/02/17 18:00 Sodium Chloride (Normal Saline) 1,000 mls @ 150 mls/hr IV ASDIRECTED [place] Stop: 05/02/17 17:09 Last Admin: 05/02/17 10:52 Dose: 150 mls/hr Iopamidol (Isovue-300 (61%)) 100 ml IVPUSH ONETIME ONE Stop: 05/01/17 17:45 Last Admin: 05/01/17 18:16 Dose: 100 ml Ketorolac Tromethamine (Toradol) 15 mg IVPUSH ONETIME ONE Stop: 05/02/17 11:00 Last Admin: 05/02/17 11:37 Dose: 15 mg Lorazepam (Ativan) 1 mg IVPUSH ONETIME ONE Stop: 05/02/17 09:42 Last Admin: 05/02/17 10:01 Dose: 1 mg Mirtazapine 45mg Tab (Own Med) 1 each PO ONETIME ONE Stop: 05/01/17 23:21 Last Admin: 05/01/17 23:35 Dose: 1 each Ondansetron HCl (Zofran) 4 mg IVPUSH ONETIME ONE Stop: 05/01/17 18:08 Last Admin: 05/01/17 18:25 Dose: 4 mg Phenylephrine HCl ([place]-Synephrine 0.25% Mild Nasal [place]) 0 ml NASBOTH ONETIME ONE Stop: 05/02/17 11:46 Last Admin: 05/02/17 11:44 Dose: 3 spray Sodium Chloride (Saline Flush) 10 ml FLUSH ONETIME PRN PRN Reason: IV FLUSH Last Admin: 05/01/17 18:16 Dose: 10 ml - Exam Quality Assessment: DVT Prophylaxis General: Alert, Oriented, No Acute Distress HEENT: Pupils Equal, Pupils Reactive, EOMI Neck: Supple, Trachea Midline Lungs: Normal Respiratory Effort Cardiovascular: Regular Rate GI/Abdominal Exam: Normal Bowel Sounds, Soft, Non-Tender, No Distention (Male) Exam: Deferred Back Exam: Normal Inspection Extremities: Normal Inspection, No Pedal Edema Skin: Warm Neurological: No New Focal Deficit Psy/Mental Status: Alert - Problem List & Annotations (1) Anxiety about health SNOMED Code(s): 504103683 Code(s): F41.8 - OTHER SPECIFIED ANXIETY DISORDERS Status: Acute Priority : Medium Current Visit: Yes (2) Partial small bowel obstruction SNOMED Code(s): 292077276 Code(s): K56.69 - OTHER INTESTINAL OBSTRUCTION Status: Acute Priority: Medium Current Visit: Yes (3) Hypothyroidism SNOMED Code(s): 47898157 Code(s): E03.9 - HYPOTHYROIDISM, UNSPECIFIED Status: Chronic Priority: Low Current Visit: Yes Qualifiers: Hypothyroidism type: unspecified Qualified Code(s): E03.9 - Hypothyroidism , unspecified (4) Anemia SNOMED Code(s): 175089564 Code(s): D64.9 - ANEMIA, UNSPECIFIED Status: Chronic Priority: Low Current Visit: No Qualifiers: Anemia type: unspecified type Qualified Code(s): D64.9 - Anemia, unspecified (5) Cardiomyopathy SNOMED Code(s): 76472075 Code(s): I42.9 - CARDIOMYOPATHY, UNSPECIFIED Status: Chronic Priority: Low Current Visit: No (6) Restless leg syndrome SNOMED Code(s): 16371355 Code(s): G25.81 - RESTLESS LEGS SYNDROME Status: Chronic Priority: Low Current Visit: No (7) Ventricular tachycardia SNOMED Code(s): 77128255, 85214738 Code(s): I47.2 - VENTRICULAR TACHYCARDIA Status: Acute Current Visit: Yes (8) Bulimia SNOMED Code(s): 81933419 Code(s): F50.2 - BULIMIA NERVOSA Status: Acute Current Visit: Yes - Problem List Review Problem List Initiated/Reviewed/Updated: Yes - My Orders Last 24 Hours: My Active Orders 05/02/17 14:26 Bisacodyl [Dulcolax] 10 mg RECTAL BID PRN 05/02/17 15:00 ClonazePAM [KlonoPIN] 1 mg PO TID 05/02/17 21:00 Carvedilol [Coreg] 3.125 mg PO BID Mirtazapine [Remeron] 45 mg PO BEDTIME 05/03/17 06:00 Levothyroxine [Synthroid] 88 mcg PO ACBREAKFAST 05/03/17 09:00 Venlafaxine [Effexor XR] 112.5 mg PO DAILY - Plan Plan:: Impression/Plan: Partial SBO-->resolved Gen surg signed off Wgt loss-->OP work up by [place] Banuelos [place]-->observed Psych [facility]--increased activity noted with his Mother's arrival Constipation-->resolved Depression/Psychosis--medication adjustment as needed. DVT/GI-->Protonix/Zofran
[2017-05-03] MEDS ORDERED: LORazepam 2 MG/ML MDV IVPUSH ONE (14:41)
[2017-05-03] MEDS: LORazepam 2 MG/ML MDV IVPUSH PRN ×2 (14:51→23:33)
[2017-05-03] MEDS: Pantoprazole 40 MG Vial IVPUSH SCH ×2 (14:56→21:06)
[2017-05-03] MEDS: Sodium Chloride 0.9% 1,000 ML IV SCH (18:27)
[2017-05-03] MEDS: Mirtazapine 15 MG Tab PO SCH (21:04)
[2017-05-04] MEDS: chlordiazePOXIDE 10 MG Cap PO SCH ×2 (08:15→10:49)
[2017-05-04] MEDS: Levothyroxine 88 MCG Tab PO SCH (08:15)
[2017-05-04] MEDS: Pantoprazole 40 MG Vial IVPUSH SCH ×2 (08:18→21:32)
[2017-05-04] MEDS: ClonazePAM 1 MG Tab PO SCH ×3 (08:18→21:31)
[2017-05-04] MEDS: Venlafaxine 75 MG Cap.ER PO SCH (08:18)
[2017-05-04] MEDS: Carvedilol 3.125 MG Tab PO SCH ×3 (08:19→21:32)
[2017-05-04] MEDS: Enoxaparin 40 MG/0.4 ML Syringe SUBCUT SCH (08:20)
[2017-05-04] MEDS ORDERED: Bismuth Subsalicylate 262 MG/15 ML Susp 236 ML Bottle PO ONE (09:40)
--- NOTE | 2017-05-04 14:26 | PCM.PN ---
- General Info Date of Service: 05/04/17 Functional Status: Reports: Other (self induced vomiting) - Review of Systems General: Reports: No Symptoms HEENT: Reports: No Symptoms Pulmonary: Reports: No Symptoms Cardiovascular: Reports: No Symptoms Gastrointestinal: Reports: Nausea, Vomiting Genitourinary: Reports: No Symptoms Musculoskeletal: Reports: No Symptoms Skin: Reports: No Symptoms Neurological: Reports: No Symptoms Psychiatric: Reports: No Symptoms - Patient Data Vitals - Most Recent: Last Vital Signs Temp 36.7 C 05/04/17 08:12 Pulse 92 05/04/17 09:36 Resp 19 05/04/17 08:12 BP 98/56 L 05/04/17 09:36 Pulse Ox 92 L 05/04/17 08:15 Weight - Most Recent: 56.926 kg I&O - Last 24 Hours: Intake & Output 05/03/17 05/04/17 05/04/17 22:59 06:59 14:59 Intake Total 914 1524 227 Output Total 2300 600 Balance -1386 924 227 Lab Results Last 24 Hours: Laboratory Results - last 24 hr 05/04/17 05/04/17 Range/Units 10:50 10:50 WBC 7.23 (4.23-9.07) K/mm3 RBC 5.24 (4.63-6.08) M/mm3 Hgb 15.8 (13.7-17.5) gm/L Hct 45.5 (40.1-51.0) % MCV 86.8 (79.0-92.2) fl MCH 30.2 (25.7-32.2) pg MCHC 34.7 (32.2-35.5) g/dl RDW Std Deviation 43.2 (35.1-43.9) fL Plt Count 246 (163-337) K/mm3 MPV 9.9 (9.4-12.3) fl Neut % (Auto) 48.4 (34.0-67.9) % Lymph % (Auto) 30.8 (21.8-53.1) % [place] % (Auto) 20.2 H (5.3-12.2) % Eos % (Auto) 0.1 L (0.8-7.0) Baso % (Auto) 0.1 (0.1-1.2) % Neut # (Auto) 3.49 (1.78-5.38) K/mm3 Lymph # (Auto) 2.23 (1.32-3.57) K/mm3 [place] # (Auto) 1.46 H (0.30-0.82) K/mm3 Eos # (Auto) 0.01 L (0.04-0.54) K/mm3 Baso # (Auto) 0.01 (0.01-0.08) K/mm3 Manual Slide Review Abnormal smear Sodium 136 (136-145) mEq/L Potassium 3.9 (3.5-5.1) mEq/L Chloride 96 L (98-107) mEq/L Carbon Dioxide 25 (21-32) mEq/L Anion Gap 18.9 H (5-15) BUN 89 H (7-18) mg/dL Creatinine 2.7 H (0.7-1.3) mg/dL Est Cr Clr Drug Dosing 24.01 mL/min Estimated GFR (MDRD) 24 (>60) mL/min BUN/Creatinine Ratio 33.0 H (14-18) Glucose 130 H (74-106) mg/dL Calcium 7.4 L (8.5-10.1) mg/dL Magnesium 2.3 (1.8-2.4) mg/dl Med Orders - Current: Current Medications Benzocaine (Hurricaine 20% [place]) 0 ml MUCMEM Q4HR PRN PRN Reason: Pain Last Admin: 05/02/17 11:42 Dose: 3 sprays Bisacodyl (Dulcolax) 10 mg RECTAL BID PRN PRN Reason: Constipation Carvedilol (Coreg) 3.125 mg PO BID [facility] Last Admin: 05/04/17 09:36 Dose: 3.125 mg Chlordiazepoxide HCl (Librium) 10 mg PO DAILY [facility] Last Admin: 05/04/17 10:49 Dose: 10 mg Clonazepam (Klonopin) 1 mg PO TID [facility] Last Admin: 05/04/17 08:18 Dose: 1 mg Enoxaparin Sodium (Lovenox) 30 mg SUBCUT DAILY [facility] Hydralazine HCl (Apresoline) 20 mg IVPUSH Q4H PRN PRN Reason: Hypertension Sodium Chloride (Normal Saline) 1,000 mls @ 75 mls/hr IV ASDIRECTED [facility] Levothyroxine Sodium (Synthroid) 88 mcg PO ACBREAKFAST [facility] Last Admin: 05/04/17 08:15 Dose: 88 mcg Lorazepam (Ativan) 1 mg IVPUSH Q8H PRN PRN Reason: Anxiety Last Admin: 05/03/17 23:33 Dose: 1 mg Metoprolol Tartrate (Lopressor) 5 mg IVPUSH Q4H PRN PRN Reason: Tachycardia Mirtazapine (Remeron) 45 mg PO BEDTIME [facility] Last Admin: 05/03/17 21:04 Dose: 45 mg Ondansetron HCl (Zofran) 4 mg IVPUSH Q4H PRN PRN Reason: Nausea Last Admin: 05/03/17 09:44 Dose: 4 mg Pantoprazole Sodium (Protonix Iv) 40 mg IVPUSH BID [facility] Last Admin: 05/04/17 08:18 Dose: 40 mg Sodium Chloride (Saline Flush) 10 ml FLUSH ASDIRECTED PRN PRN Reason: Keep Vein Open Last Admin: 05/01/17 17:13 Dose: 10 ml Venlafaxine HCl (Effexor Xr) 150 mg PO DAILY [facility] Last Admin: 05/04/17 08:18 Dose: 150 mg Discontinued Medications Bisacodyl (Dulcolax) 10 mg RECTAL DAILY [facility] Last Admin: 05/02/17 16:35 Dose: Not Given Bismuth Subsalicylate (Pepto Bismol) 30 ml PO ONETIME ONE Stop: 05/04/17 09:41 Last Admin: 05/04/17 10:49 Dose: 30 ml Clonazepam (Klonopin) 1 mg PO ONETIME ONE Stop: 05/01/17 23:24 Last Admin: 05/01/17 23:35 Dose: 1 mg Diatrizoate Meglum/Diatrizoate Sod (Gastrografin 37%) 120 ml PO ONETIME ONE Stop: 05/01/17 17:45 Last Admin: 05/01/17 18:16 Dose: 90 ml Enoxaparin Sodium (Lovenox) 40 mg SUBCUT DAILY [facility] Last Admin: 05/02/17 10:51 Dose: 40 mg Enoxaparin Sodium (Lovenox) 40 mg SUBCUT DAILY [facility] Last Admin: 05/04/17 08:20 Dose: 40 mg Hydromorphone HCl (Dilaudid) 1 mg IVPUSH ONETIME ONE Stop: 05/01/17 18:06 Last Admin: 05/01/17 18:26 Dose: 1 mg Sodium Chloride (Normal Saline) 1,000 mls @ 1,000 mls/hr IV .BOLUS STA Stop: 05/01/17 17:42 Last Admin: 05/01/17 17:12 Dose: 1,000 mls/hr Sodium Chloride (Normal Saline) 1,000 mls @ 75 mls/hr IV ASDIRECTED [place] Last Admin: 05/01/17 21:13 Dose: 75 mls/hr Magnesium Sulfate 2 gm/ Premix 50 mls @ 25 mls/hr IV ONETIME ONE Stop: 05/02/17 01:58 Last Admin: 05/02/17 00:27 Dose: 25 mls/hr Sodium Chloride (Normal Saline) 1,000 mls @ 100 mls/hr IV ASDIRECTED [place] Stop: 05/02/17 18:00 Sodium Chloride (Normal Saline) 1,000 mls @ 150 mls/hr IV ASDIRECTED [facility] Stop: 05/02/17 17:09 Last Admin: 05/02/17 10:52 Dose: 150 mls/hr Sodium Chloride (Normal Saline) 1,000 mls @ 40 mls/hr IV ASDIRECTED [facility] Last Admin: 05/03/17 18:27 Dose: 40 mls/hr Iopamidol (Isovue-300 (61%)) 100 ml IVPUSH ONETIME ONE Stop: 05/01/17 17:45 Last Admin: 05/01/17 18:16 Dose: 100 ml Ketorolac Tromethamine (Toradol) 15 mg IVPUSH ONETIME ONE Stop: 05/02/17 11:00 Last Admin: 05/02/17 11:37 Dose: 15 mg Lorazepam (Ativan) 1 mg IVPUSH ONETIME ONE Stop: 05/02/17 09:42 Last Admin: 05/02/17 10:01 Dose: 1 mg Lorazepam (Ativan) 1 mg IVPUSH ONETIME ONE Stop: 05/03/17 14:42 Last Admin: 05/03/17 14:59 Dose: 1 mg Mirtazapine 45mg Tab (Own Med) 1 each PO ONETIME ONE Stop: 05/01/17 23:21 Last Admin: 05/01/17 23:35 Dose: 1 each Ondansetron HCl (Zofran) 4 mg IVPUSH ONETIME ONE Stop: 05/01/17 18:08 Last Admin: 05/01/17 18:25 Dose: 4 mg Phenylephrine HCl ([place]-Synephrine 0.25% Mild Nasal [place]) 0 ml NASBOTH ONETIME ONE Stop: 05/02/17 11:46 Last Admin: 05/02/17 11:44 Dose: 3 spray Sodium Chloride (Saline Flush) 10 ml FLUSH ONETIME PRN PRN Reason: IV FLUSH Last Admin: 05/01/17 18:16 Dose: 10 ml Venlafaxine HCl (Effexor Xr) 112.5 mg PO DAILY [place] Last Admin: 05/03/17 08:11 Dose: 112.5 mg - Exam Quality Assessment: DVT Prophylaxis General: Alert, Oriented, No Acute Distress HEENT: Pupils Equal, Pupils Reactive, EOMI Neck: Supple, Trachea Midline Lungs: Normal Respiratory Effort Cardiovascular: Regular Rate GI/Abdominal Exam: Normal Bowel Sounds, Soft, Non-Tender, No Distention (Male) Exam: Deferred Back Exam: Normal Inspection Extremities: Normal Inspection Skin: Warm Neurological: No New Focal Deficit Psy/Mental Status: Alert - Problem List & Annotations (1) Anxiety about health SNOMED Code(s): 170149143 Code(s): F41.8 - OTHER SPECIFIED ANXIETY DISORDERS Status: Acute Priority : Medium Current Visit: Yes (2) Partial small bowel obstruction SNOMED Code(s): 029369333 Code(s): K56.69 - OTHER INTESTINAL OBSTRUCTION Status: Acute Priority: Medium Current Visit: Yes (3) Hypothyroidism SNOMED Code(s): 66329195 Code(s): E03.9 - HYPOTHYROIDISM, UNSPECIFIED Status: Chronic Priority: Low Current Visit: Yes Qualifiers: Hypothyroidism type: unspecified Qualified Code(s): E03.9 - Hypothyroidism , unspecified (4) Anemia SNOMED Code(s): 953814365 Code(s): D64.9 - ANEMIA, UNSPECIFIED Status: Chronic Priority: Low Current Visit: No Qualifiers: Anemia type: unspecified type Qualified Code(s): D64.9 - Anemia, unspecified (5) Cardiomyopathy SNOMED Code(s): 84375007 Code(s): I42.9 - CARDIOMYOPATHY, UNSPECIFIED Status: Chronic Priority: Low Current Visit: No (6) Restless leg syndrome SNOMED Code(s): 76601551 Code(s): G25.81 - RESTLESS LEGS SYNDROME Status: Chronic Priority: Low Current Visit: No (7) Ventricular tachycardia SNOMED Code(s): 74892042, 82056747 Code(s): I47.2 - VENTRICULAR TACHYCARDIA Status: Acute Current Visit: Yes (8) Bulimia SNOMED Code(s): 15826930 Code(s): F50.2 - BULIMIA NERVOSA Status: Acute Current Visit: Yes - Problem List Review Problem List Initiated/Reviewed/Updated: Yes - My Orders Last 24 Hours: My Active Orders 05/03/17 14:45 Pantoprazole [ProTONIX IV] 40 mg IVPUSH BID 05/04/17 07:00 chlordiazePOXIDE [Librium] 10 mg PO DAILY 05/04/17 14:30 Sodium Chloride 0.9% [Normal Saline] 1,000 ml IV ASDIRECTED 05/04/17 Lunch Full Liquid Diet [DIET] - Plan Plan:: Impression/Plan: Acute renal failure-->dehydration IVF for 12 hours, 0.9NS @ 75cc/hr. Partial SBO-->resolved Gen surg signed off Wgt loss-->OP work up by Dr Banuelos at [place] Bullemia-->observed Psych consult Ativan/Librium--increased activity noted with his Mother's arrival Constipation-->resolved Depression/Psychosis--medication adjustment as needed. DVT/GI-->Protonix/Zofran
[2017-05-04] MEDS ORDERED: Sodium Chloride 0.9% 1,000 ML IV SCH ×2 (14:30→23:45)
--- NOTE | 2017-05-04 15:41 | CONS ---
CONSULTING PHYSICIAN: Cas Bagley MD DATE OF CONSULTATION: 05/03/2017 A 60-minute inpatient clinical event IDENTIFICATION: The patient is a 56-year-old male who is admitted to the MedSurg unit at [facility] in [place], [place], on 05/01/2017. He is seen for psychiatric evaluation. His mother who is also present for the interview also provides information during the course of the interview. CHIEF COMPLAINT: "He has been very depressed for sometime." HISTORY OF PRESENT ILLNESS: The patient is a 56-year-old male who is admitted to the inpatient medical unit at [facility] on 05/01/2017 secondary to a small bowel obstruction. Staff reports that patient's obstruction began resolving, but then it was noted by staff that the patient had been engaging in purging behaviors while on the inpatient medical unit. When asked about this situation, the patient does acknowledge he has been purging and his mother also agrees with this assessment. The patient states "it has been going on for a while." The patient's mother states that the behaviors have "gotten worse since around the spring" 2016. The patient's mother is stating that the patient is more depressed, his purging behaviors seem to have worsened. The patient is medication compliant on his current psychiatric medication regimen of Effexor XR, Remeron and Klonopin, but has not been following up with Psychiatry for quite some time because psychiatric services that the patient had been receiving had been temporarily discontinued in the community. The patient is wanting to get back into psychiatric outpatient followup when he is medically stabilized and he and his mother are reporting they would like the medications adjusted if possible because they have helped in the past in terms of controlling the patient's symptoms of depression and they are open to getting some help for the patient's purging behaviors. The patient is denying any suicidal or homicidal. Denies any psychotic, delusional, or paranoid symptoms. There is no illicit substance use or excessive alcohol use complicating the patient's clinical picture. MEDICATIONS: At the time of presentation. 1. Effexor XR 112.5 mg q.a.m. 2. Klonopin 1 mg t.i.d. 3. Remeron 45 mg at bedtime. 4. Ultram 100 mg q.8 hours. 5. Vitamin B12 supplements. 6. Synthroid. 7. Nexium. ALLERGIES: The patient is allergic to dairy and eggs. PAST MEDICAL HISTORY: 1. Hypothyroidism. 2. GERD. 3. Small bowel obstruction. REVIEW OF SYSTEMS: Aside from endocrine and GI, all other major organ systems are negative at this point in time for acute difficulties or complications. FAMILY PSYCHIATRIC AND CD HISTORY: None reported. PAST PSYCHIATRIC AND CD HISTORY: The patient does have extensive psychiatric history. Negative chemical dependency history. Has been admitted for psychiatric issues in the past, but has currently been stable overall for the past couple of years on his current psychiatric medication regimen and for further details, we would recommend reviewing patient's outpatient psychiatric records. SOCIAL HISTORY: The patient is born and raised in [facility] [place]. He has never been . Not in current relationships now, has no children. He lives with his mother in [place], [place]. MENTAL STATUS EXAM: The patient is a 56-year-old white male in no apparent distress. Speech is of regular rate and rhythm. The patient is cognitively oriented. Psychomotor activities within normal limits. There is no abnormal motor movements or tics observed. Gait and station are not observed. This patient is lying in bed during the course of the interview. Mood is depressed. Affect is consistent with stated mood restrictive, but cooperative overall for the purposes of the inpatient consult. There is no behavioral or stated evidence of acute suicidal or homicidal ideation. No acute psychotic, delusional, or paranoid symptoms. Thought processes are significant for some voice, but are organized overall. There are no acute manic symptoms or loose associations evident. Judgment and insight may be impaired into the severity of his purging behaviors, but motivation for help appears good. VITALS: Blood pressure 98/63, pulse 96, respirations 18, temperature 97.9 degrees. IMPRESSION: [place] I. 1. Major depressive disorder, recurrent, F33.3. 2. Anxiety disorder, not otherwise specified F41.9. 3. Suspected bulimic disorder, newly diagnosed. [place] II: None. [place] III. 1. Small bowel obstruction. 2. Hypothyroidism. 3. History of gastroesophageal reflux disease. [place] IV: Severe. [place] V: 50-55. PLAN: 1. Increase the patient's Effexor XR from 112.5 mg to 150 mg q.a.m. to help with mood. 2. Continue Remeron 45 mg at bedtime. 3. Continue Klonopin 1 mg t.i.d. for anxiety reduction. 4. Recommend the patient to refrain from further purging behaviors. 5. Recommend Social Work to explore possible program options to help the patient deal with his purging behaviors once he is medically stabilized and discharged back to the community. 6. Pastoral guidance for patient and family inpatient medical unit. 7. Recommend the patient to follow up with outpatient psychiatry once he is medically stabilized and discharged back to community to review his newly adjusted and continued psychiatric medication regimen. 8. We will continue to follow up with the patient on an as-needed basis while the patient remains on the inpatient medical unit. 9. We will follow up with the patient sooner if any complications in the interim. 10.Crisis plan is in place. LUIS MIGUEL /[id number]
[2017-05-04] MEDS: Mirtazapine 15 MG Tab PO SCH (21:30)
[2017-05-05] MEDS: Levothyroxine 88 MCG Tab PO SCH (07:52)
[2017-05-05] MEDS: Pantoprazole 40 MG Vial IVPUSH SCH (08:58)
[2017-05-05] MEDS: ClonazePAM 1 MG Tab PO SCH ×3 (08:59→20:41)
[2017-05-05] MEDS: chlordiazePOXIDE 10 MG Cap PO SCH (08:59)
[2017-05-05] MEDS: Carvedilol 3.125 MG Tab PO SCH ×2 (08:59→20:40)
[2017-05-05] MEDS: Venlafaxine 75 MG Cap.ER PO SCH (08:59)
[2017-05-05] MEDS ORDERED: Enoxaparin 30 MG/0.3 ML Syringe SUBCUT SCH (09:00)
--- NOTE | 2017-05-05 12:31 | PCM.PN ---
<Catracho Hamilton - Last Filed: 05/05/17 12:25> - General Info Date of Service: 05/05/17 Admission Dx/Problem (Free Text): Admission Diagnosis/Problem Admission Diagnosis/Problem Obstruction of colon Subjective Update: Patient denies any complaints. He is anxious about being discharged as soon as possible so he can get back to his [facility] cd's. Functional Status: Reports: Pain Controlled, Tolerating Diet, Ambulating, Urinating - Review of Systems General: Reports: No Symptoms HEENT: Reports: No Symptoms Pulmonary: Reports: No Symptoms Cardiovascular: Reports: No Symptoms Gastrointestinal: Reports: No Symptoms Genitourinary: Reports: No Symptoms Musculoskeletal: Reports: No Symptoms Skin: Reports: No Symptoms Neurological: Reports: No Symptoms Psychiatric: Reports: Depression, Mood Lability, Anxiety. Denies: Hallucinations - Patient Data Vitals - Most Recent: Last Vital Signs Temp 98.8 F 05/05/17 07:46 Pulse 61 05/05/17 07:46 Resp 14 05/05/17 07:46 BP 94/58 L 05/05/17 08:26 Pulse Ox 94 L 05/05/17 07:46 Weight - Most Recent: 56.518 kg I&O - Last 24 Hours: Intake & Output 05/04/17 05/05/17 05/05/17 22:59 06:59 14:59 Intake Total 951 1436 120 Output Total 1100 350 Balance 951 336 -230 Lab Results Last 24 Hours: Laboratory Results - last 24 hr 05/05/17 05/05/17 Range/Units 07:07 07:07 WBC 5.49 (4.23-9.07) K/mm3 RBC 4.77 (4.63-6.08) M/mm3 Hgb 14.4 (13.7-17.5) gm/L Hct 41.6 (40.1-51.0) % MCV 87.2 (79.0-92.2) fl MCH 30.2 (25.7-32.2) pg MCHC 34.6 (32.2-35.5) g/dl RDW Std Deviation 43.3 (35.1-43.9) fL Plt Count 227 (163-337) K/mm3 MPV 10.0 (9.4-12.3) fl Neut % (Auto) 34.6 (34.0-67.9) % Lymph % (Auto) 49.4 (21.8-53.1) % [place] % (Auto) 13.7 H (5.3-12.2) % Eos % (Auto) 1.5 (0.8-7.0) Baso % (Auto) 0.4 (0.1-1.2) % Neut # (Auto) 1.91 (1.78-5.38) K/mm3 Lymph # (Auto) 2.71 (1.32-3.57) K/mm3 [place] # (Auto) 0.75 (0.30-0.82) K/mm3 Eos # (Auto) 0.08 (0.04-0.54) K/mm3 Baso # (Auto) 0.02 (0.01-0.08) K/mm3 Sodium 137 (136-145) mEq/L Potassium 3.6 (3.5-5.1) mEq/L Chloride 102 (98-107) mEq/L Carbon Dioxide 26 (21-32) mEq/L Anion Gap 12.6 (5-15) BUN 35 H (7-18) mg/dL Creatinine 0.8 (0.7-1.3) mg/dL Est Cr Clr Drug Dosing 80.46 mL/min Estimated GFR (MDRD) > 60 (>60) mL/min BUN/Creatinine Ratio 43.8 H (14-18) Glucose 94 (74-106) mg/dL Calcium 8.0 L (8.5-10.1) mg/dL Med Orders - Current: Current Medications Benzocaine (Hurricaine 20% Hickman) 0 ml MUCMEM Q4HR PRN PRN Reason: Pain Last Admin: 05/02/17 11:42 Dose: 3 sprays Bisacodyl (Dulcolax) 10 mg RECTAL BID PRN PRN Reason: Constipation Carvedilol (Coreg) 3.125 mg PO BID [facility] Last Admin: 05/05/17 08:59 Dose: 3.125 mg Chlordiazepoxide HCl (Librium) 10 mg PO DAILY [facility] Last Admin: 05/05/17 08:59 Dose: 10 mg Clonazepam (Klonopin) 1 mg PO TID [facility] Last Admin: 05/05/17 08:59 Dose: 1 mg Enoxaparin Sodium (Lovenox) 40 mg SUBCUT DAILY [facility] Hydralazine HCl (Apresoline) 20 mg IVPUSH Q4H PRN PRN Reason: Hypertension Levothyroxine Sodium (Synthroid) 88 mcg PO ACBREAKFAST [facility] Last Admin: 05/05/17 07:52 Dose: 88 mcg Lorazepam (Ativan) 1 mg IVPUSH Q8H PRN PRN Reason: Anxiety Last Admin: 05/03/17 23:33 Dose: 1 mg Metoprolol Tartrate (Lopressor) 5 mg IVPUSH Q4H PRN PRN Reason: Tachycardia Mirtazapine (Remeron) 45 mg PO BEDTIME [facility] Last Admin: 05/04/17 21:30 Dose: 45 mg Ondansetron HCl (Zofran) 4 mg IVPUSH Q4H PRN PRN Reason: Nausea Last Admin: 05/03/17 09:44 Dose: 4 mg Pantoprazole Sodium (Protonix) 40 mg PO DAILY [facility] Sodium Chloride (Saline Flush) 10 ml FLUSH ASDIRECTED PRN PRN Reason: Keep Vein Open Last Admin: 05/01/17 17:13 Dose: 10 ml Venlafaxine HCl (Effexor Xr) 150 mg PO DAILY [facility] Last Admin: 05/05/17 08:59 Dose: 150 mg Discontinued Medications Bisacodyl (Dulcolax) 10 mg RECTAL DAILY [facility] Last Admin: 05/02/17 16:35 Dose: Not Given Bismuth Subsalicylate (Pepto Bismol) 30 ml PO ONETIME ONE Stop: 05/04/17 09:41 Last Admin: 05/04/17 10:49 Dose: 30 ml Clonazepam (Klonopin) 1 mg PO ONETIME ONE Stop: 05/01/17 23:24 Last Admin: 05/01/17 23:35 Dose: 1 mg Diatrizoate Meglum/Diatrizoate Sod (Gastrografin 37%) 120 ml PO ONETIME ONE Stop: 05/01/17 17:45 Last Admin: 05/01/17 18:16 Dose: 90 ml Enoxaparin Sodium (Lovenox) 40 mg SUBCUT DAILY [facility] Last Admin: 05/02/17 10:51 Dose: 40 mg Enoxaparin Sodium (Lovenox) 40 mg SUBCUT DAILY [facility] Last Admin: 05/04/17 08:20 Dose: 40 mg Enoxaparin Sodium (Lovenox) 30 mg SUBCUT DAILY [facility] Last Admin: 05/05/17 08:59 Dose: 30 mg Hydromorphone HCl (Dilaudid) 1 mg IVPUSH ONETIME ONE Stop: 05/01/17 18:06 Last Admin: 05/01/17 18:26 Dose: 1 mg Sodium Chloride (Normal Saline) 1,000 mls @ 1,000 mls/hr IV .BOLUS STA Stop: 05/01/17 17:42 Last Admin: 05/01/17 17:12 Dose: 1,000 mls/hr Sodium Chloride (Normal Saline) 1,000 mls @ 75 mls/hr IV ASDIRECTED [facility] Last Admin: 05/01/17 21:13 Dose: 75 mls/hr Magnesium Sulfate 2 gm/ Premix 50 mls @ 25 mls/hr IV ONETIME ONE Stop: 05/02/17 01:58 Last Admin: 05/02/17 00:27 Dose: 25 mls/hr Sodium Chloride (Normal Saline) 1,000 mls @ 100 mls/hr IV ASDIRECTED [place] Stop: 05/02/17 18:00 Sodium Chloride (Normal Saline) 1,000 mls @ 150 mls/hr IV ASDIRECTED [facility] Stop: 05/02/17 17:09 Last Admin: 05/02/17 10:52 Dose: 150 mls/hr Sodium Chloride (Normal Saline) 1,000 mls @ 40 mls/hr IV ASDIRECTED [facility] Last Admin: 05/03/17 18:27 Dose: 40 mls/hr Sodium Chloride (Normal Saline) 1,000 mls @ 75 mls/hr IV ASDIRECTED [facility] Last Admin: 05/04/17 14:45 Dose: 75 mls/hr Sodium Chloride (Normal Saline) 1,000 mls @ 75 mls/hr IV ASDIRECTED [facility] Stop: 05/05/17 03:00 Iopamidol (Isovue-300 (61%)) 100 ml IVPUSH ONETIME ONE Stop: 05/01/17 17:45 Last Admin: 05/01/17 18:16 Dose: 100 ml Ketorolac Tromethamine (Toradol) 15 mg IVPUSH ONETIME ONE Stop: 05/02/17 11:00 Last Admin: 05/02/17 11:37 Dose: 15 mg Lorazepam (Ativan) 1 mg IVPUSH ONETIME ONE Stop: 05/02/17 09:42 Last Admin: 05/02/17 10:01 Dose: 1 mg Lorazepam (Ativan) 1 mg IVPUSH ONETIME ONE Stop: 05/03/17 14:42 Last Admin: 05/03/17 14:59 Dose: 1 mg Mirtazapine 45mg Tab (Own Med) 1 each PO ONETIME ONE Stop: 05/01/17 23:21 Last Admin: 05/01/17 23:35 Dose: 1 each Ondansetron HCl (Zofran) 4 mg IVPUSH ONETIME ONE Stop: 05/01/17 18:08 Last Admin: 05/01/17 18:25 Dose: 4 mg Pantoprazole Sodium (Protonix Iv) 40 mg IVPUSH BID [facility] Last Admin: 05/05/17 08:58 Dose: 40 mg Phenylephrine HCl (Raymond-Synephrine 0.25% Mild Nasal [place]ickman) 0 ml NASBOTH ONETIME ONE Stop: 05/02/17 11:46 Last Admin: 05/02/17 11:44 Dose: 3 spray Sodium Chloride (Saline Flush) 10 ml FLUSH ONETIME PRN PRN Reason: IV FLUSH Last Admin: 05/01/17 18:16 Dose: 10 ml Venlafaxine HCl (Effexor Xr) 112.5 mg PO DAILY [facility] Last Admin: 05/03/17 08:11 Dose: 112.5 mg - Exam Quality Assessment: DVT Prophylaxis General: Alert, Oriented, Cooperative HEENT: Pupils Equal, Pupils Reactive, Mucous Membr. Moist/[place] Neck: Supple, Trachea Midline, No JVD Lungs: Clear to Auscultation, Normal Respiratory Effort Cardiovascular: Regular Rate, Regular Rhythm, No Murmurs GI/Abdominal Exam: Normal Bowel Sounds, Soft, Non-Tender, No Organomegaly, No Distention (Male) Exam: Deferred Back Exam: Normal Inspection Extremities: Normal Inspection, Normal Range of Motion, Non-Tender, No Pedal Edema, Normal Capillary Refill Peripheral Pulses: 2+: Radial (L), Radial (R), Posterior Tibial (L), Posterior Tibial (R), Dorsalis Pedis (L), Dorsalis Pedis (R) Skin: Warm, Dry, Intact Neurological: No New Focal Deficit Psy/Mental Status: Alert, Labile Mood (He frequently alternates between crying and talking. Frequently repeating he is "sorry" and apears very upset. ), Anxious, Depressed - Problem List & Annotations (1) Partial small bowel obstruction SNOMED Code(s): 494049158 Code(s): K56.69 - OTHER INTESTINAL OBSTRUCTION Status: Resolved Priority : Medium Current Visit: Yes (2) Bulimia nervosa, purging type SNOMED Code(s): 52520271 Code(s): F50.2 - BULIMIA NERVOSA Status: Suspected Priority: High Current Visit: Yes (3) Anxiety about health SNOMED Code(s): 639918573 Code(s): F41.8 - OTHER SPECIFIED ANXIETY DISORDERS Status: Acute Priority : Medium Current Visit: Yes (4) Hypothyroidism SNOMED Code(s): 97465830 Code(s): E03.9 - HYPOTHYROIDISM, UNSPECIFIED Status: Chronic Priority: Low Current Visit: Yes QualifierTitle: Hypothyroidism type: unspecified Qualified Code(s): E03.9 - Hypothyroidism, unspecified (5) Cardiomyopathy SNOMED Code(s): 28637609 Code(s): I42.9 - CARDIOMYOPATHY, UNSPECIFIED Status: Chronic Priority: Low Current Visit: No (6) Anemia SNOMED Code(s): 871484212 Code(s): D64.9 - ANEMIA, UNSPECIFIED Status: Chronic Priority: Low Current Visit: No QualifierTitle: Anemia type: unspecified type Qualified Code(s): D64.9 - Anemia, unspecified (7) Restless leg syndrome SNOMED Code(s): 81489210 Code(s): G25.81 - RESTLESS LEGS SYNDROME Status: Chronic Priority: Low Current Visit: No - Problem List Review Problem List Initiated/Reviewed/Updated: Yes - My Orders Last 24 Hours: My Active Orders 05/05/17 11:29 Consult to Research Editor [CONS] Routine 05/05/17 Breakfast Soft Diet [DIET] 05/06/17 09:00 Enoxaparin [Lovenox] 40 mg SUBCUT DAILY - Plan Plan:: Impression/Plan: Acute renal failure-->dehydration ->resolved IVF for 12 hours, 0.9NS @ 75cc/hr. Partial SBO-->resolved Gen surg signed off Wgt loss-->OP work up by Dr Banuelos at [place]. Bullemia-->observed Psych consult [facility]--increased activity noted with his Mother's arrival [facility] contacted and offering services. Will discuss with patient and family. Constipation-->resolved Depression/Psychosis--medication adjustment as needed. DVT/GI-->Protonix/Zofran <Su Wilks - Last Filed: 05/05/17 17:03> - Patient Data Vitals - Most Recent: Last Vital Signs Temp 36.7 C 05/05/17 13:50 Pulse 75 05/05/17 13:50 Resp 16 05/05/17 13:50 BP 105/68 05/05/17 13:48 Pulse Ox 96 05/05/17 13:50 I&O - Last 24 Hours: Intake & Output 05/05/17 05/05/17 05/05/17 06:59 14:59 22:59 Intake Total 1436 720 Output Total 1100 350 Balance 336 370 Lab Results Last 24 Hours: Laboratory Results - last 24 hr 05/05/17 05/05/17 Range/Units 07:07 07:07 WBC 5.49 (4.23-9.07) K/mm3 RBC 4.77 (4.63-6.08) M/mm3 Hgb 14.4 (13.7-17.5) gm/L Hct 41.6 (40.1-51.0) % MCV 87.2 (79.0-92.2) fl MCH 30.2 (25.7-32.2) pg MCHC 34.6 (32.2-35.5) g/dl RDW Std Deviation 43.3 (35.1-43.9) fL Plt Count 227 (163-337) K/mm3 MPV 10.0 (9.4-12.3) fl Neut % (Auto) 34.6 (34.0-67.9) % Lymph % (Auto) 49.4 (21.8-53.1) % [place] % (Auto) 13.7 H (5.3-12.2) % Eos % (Auto) 1.5 (0.8-7.0) Baso % (Auto) 0.4 (0.1-1.2) % Neut # (Auto) 1.91 (1.78-5.38) K/mm3 Lymph # (Auto) 2.71 (1.32-3.57) K/mm3 [place] # (Auto) 0.75 (0.30-0.82) K/mm3 Eos # (Auto) 0.08 (0.04-0.54) K/mm3 Baso # (Auto) 0.02 (0.01-0.08) K/mm3 Sodium 137 (136-145) mEq/L Potassium 3.6 (3.5-5.1) mEq/L Chloride 102 (98-107) mEq/L Carbon Dioxide 26 (21-32) mEq/L Anion Gap 12.6 (5-15) BUN 35 H (7-18) mg/dL Creatinine 0.8 (0.7-1.3) mg/dL Est Cr Clr Drug Dosing 80.46 mL/min Estimated GFR (MDRD) > 60 (>60) mL/min BUN/Creatinine Ratio 43.8 H (14-18) Glucose 94 (74-106) mg/dL Calcium 8.0 L (8.5-10.1) mg/dL Med Orders - Current: Current Medications Benzocaine (Hurricaine 20% Hickman) 0 ml MUCMEM Q4HR PRN PRN Reason: Pain Last Admin: 05/02/17 11:42 Dose: 3 sprays Bisacodyl (Dulcolax) 10 mg RECTAL BID PRN PRN Reason: Constipation Carvedilol (Coreg) 3.125 mg PO BID [facility] Last Admin: 05/05/17 08:59 Dose: 3.125 mg Chlordiazepoxide HCl (Librium) 10 mg PO DAILY [facility] Last Admin: 05/05/17 08:59 Dose: 10 mg Clonazepam (Klonopin) 1 mg PO TID [facility] Last Admin: 05/05/17 14:21 Dose: 1 mg Enoxaparin Sodium (Lovenox) 40 mg SUBCUT DAILY [facility] Hydralazine HCl (Apresoline) 20 mg IVPUSH Q4H PRN PRN Reason: Hypertension Levothyroxine Sodium (Synthroid) 88 mcg PO ACBREAKFAST [facility] Last Admin: 05/05/17 07:52 Dose: 88 mcg Lorazepam (Ativan) 1 mg IVPUSH Q8H PRN PRN Reason: Anxiety Last Admin: 05/03/17 23:33 Dose: 1 mg Metoprolol Tartrate (Lopressor) 5 mg IVPUSH Q4H PRN PRN Reason: Tachycardia Mirtazapine (Remeron) 45 mg PO BEDTIME [facility] Last Admin: 05/04/17 21:30 Dose: 45 mg Ondansetron HCl (Zofran) 4 mg IVPUSH Q4H PRN PRN Reason: Nausea Last Admin: 05/03/17 09:44 Dose: 4 mg Pantoprazole Sodium (Protonix) 40 mg PO DAILY [facility] Sodium Chloride (Saline Flush) 10 ml FLUSH ASDIRECTED PRN PRN Reason: Keep Vein Open Last Admin: 05/01/17 17:13 Dose: 10 ml Venlafaxine HCl (Effexor Xr) 150 mg PO DAILY [facility] Last Admin: 05/05/17 08:59 Dose: 150 mg Discontinued Medications Bisacodyl (Dulcolax) 10 mg RECTAL DAILY [facility] Last Admin: 05/02/17 16:35 Dose: Not Given Bismuth Subsalicylate (Pepto Bismol) 30 ml PO ONETIME ONE Stop: 05/04/17 09:41 Last Admin: 05/04/17 10:49 Dose: 30 ml Clonazepam (Klonopin) 1 mg PO ONETIME ONE Stop: 05/01/17 23:24 Last Admin: 05/01/17 23:35 Dose: 1 mg Diatrizoate Meglum/Diatrizoate Sod (Gastrografin 37%) 120 ml PO ONETIME ONE Stop: 05/01/17 17:45 Last Admin: 05/01/17 18:16 Dose: 90 ml Enoxaparin Sodium (Lovenox) 40 mg SUBCUT DAILY [facility] Last Admin: 05/02/17 10:51 Dose: 40 mg Enoxaparin Sodium (Lovenox) 40 mg SUBCUT DAILY [facility] Last Admin: 05/04/17 08:20 Dose: 40 mg Enoxaparin Sodium (Lovenox) 30 mg SUBCUT DAILY [facility] Last Admin: 05/05/17 08:59 Dose: 30 mg Hydromorphone HCl (Dilaudid) 1 mg IVPUSH ONETIME ONE Stop: 05/01/17 18:06 Last Admin: 05/01/17 18:26 Dose: 1 mg Sodium Chloride (Normal Saline) 1,000 mls @ 1,000 mls/hr IV .BOLUS STA Stop: 05/01/17 17:42 Last Admin: 05/01/17 17:12 Dose: 1,000 mls/hr Sodium Chloride (Normal Saline) 1,000 mls @ 75 mls/hr IV ASDIRECTED [facility] Last Admin: 05/01/17 21:13 Dose: 75 mls/hr Magnesium Sulfate 2 gm/ Premix 50 mls @ 25 mls/hr IV ONETIME ONE Stop: 05/02/17 01:58 Last Admin: 05/02/17 00:27 Dose: 25 mls/hr Sodium Chloride (Normal Saline) 1,000 mls @ 100 mls/hr IV ASDIRECTED [place] Stop: 05/02/17 18:00 Sodium Chloride (Normal Saline) 1,000 mls @ 150 mls/hr IV ASDIRECTED [place] Stop: 05/02/17 17:09 Last Admin: 05/02/17 10:52 Dose: 150 mls/hr Sodium Chloride (Normal Saline) 1,000 mls @ 40 mls/hr IV ASDIRECTED [facility] Last Admin: 05/03/17 18:27 Dose: 40 mls/hr Sodium Chloride (Normal Saline) 1,000 mls @ 75 mls/hr IV ASDIRECTED [facility] Last Admin: 05/04/17 14:45 Dose: 75 mls/hr Sodium Chloride (Normal Saline) 1,000 mls @ 75 mls/hr IV ASDIRECTED [facility] Stop: 05/05/17 03:00 Iopamidol (Isovue-300 (61%)) 100 ml IVPUSH ONETIME ONE Stop: 05/01/17 17:45 Last Admin: 05/01/17 18:16 Dose: 100 ml Ketorolac Tromethamine (Toradol) 15 mg IVPUSH ONETIME ONE Stop: 05/02/17 11:00 Last Admin: 05/02/17 11:37 Dose: 15 mg Lorazepam (Ativan) 1 mg IVPUSH ONETIME ONE Stop: 05/02/17 09:42 Last Admin: 05/02/17 10:01 Dose: 1 mg Lorazepam (Ativan) 1 mg IVPUSH ONETIME ONE Stop: 05/03/17 14:42 Last Admin: 05/03/17 14:59 Dose: 1 mg Mirtazapine 45mg Tab (Own Med) 1 each PO ONETIME ONE Stop: 05/01/17 23:21 Last Admin: 05/01/17 23:35 Dose: 1 each Ondansetron HCl (Zofran) 4 mg IVPUSH ONETIME ONE Stop: 05/01/17 18:08 Last Admin: 05/01/17 18:25 Dose: 4 mg Pantoprazole Sodium (Protonix Iv) 40 mg IVPUSH BID [facility] Last Admin: 05/05/17 08:58 Dose: 40 mg Phenylephrine HCl (Raymond-Synephrine 0.25% Mild Nasal [place]) 0 ml NASBOTH ONETIME ONE Stop: 05/02/17 11:46 Last Admin: 05/02/17 11:44 Dose: 3 spray Sodium Chloride (Saline Flush) 10 ml FLUSH ONETIME PRN PRN Reason: IV FLUSH Last Admin: 05/01/17 18:16 Dose: 10 ml Venlafaxine HCl (Effexor Xr) 112.5 mg PO DAILY [facility] Last Admin: 05/03/17 08:11 Dose: 112.5 mg - Problem List & Annotations (1) Anxiety about health SNOMED Code(s): 337141191 Code(s): F41.8 - OTHER SPECIFIED ANXIETY DISORDERS Status: Acute Priority : Medium Current Visit: Yes (2) Partial small bowel obstruction SNOMED Code(s): 709449738 Code(s): K56.69 - OTHER INTESTINAL OBSTRUCTION Status: Resolved Priority : Medium Current Visit: Yes (3) Hypothyroidism SNOMED Code(s): 96048411 Code(s): E03.9 - HYPOTHYROIDISM, UNSPECIFIED Status: Chronic Priority: Low Current Visit: Yes Qualifiers: Hypothyroidism type: unspecified Qualified Code(s): E03.9 - Hypothyroidism , unspecified (4) Anemia SNOMED Code(s): 556803829 Code(s): D64.9 - ANEMIA, UNSPECIFIED Status: Chronic Priority: Low Current Visit: No Qualifiers: Anemia type: unspecified type Qualified Code(s): D64.9 - Anemia, unspecified (5) Cardiomyopathy SNOMED Code(s): 08646303 Code(s): I42.9 - CARDIOMYOPATHY, UNSPECIFIED Status: Chronic Priority: Low Current Visit: No (6) Restless leg syndrome SNOMED Code(s): 73774163 Code(s): G25.81 - RESTLESS LEGS SYNDROME Status: Chronic Priority: Low Current Visit: No (7) Ventricular tachycardia SNOMED Code(s): 43740396, 13053321 Code(s): I47.2 - VENTRICULAR TACHYCARDIA Status: Acute Current Visit: Yes (8) Bulimia SNOMED Code(s): 81656520 Code(s): F50.2 - BULIMIA NERVOSA Status: Acute Current Visit: Yes - My Orders Last 24 Hours: My Active Orders 05/06/17 09:00 Pantoprazole [ProTONIX] 40 mg PO DAILY - Plan Plan:: Patient would benefit from psych/eating disorder treatment center. Advance diet as tolerated.
[2017-05-05] MEDS ORDERED: Aluminum Hydroxide/Magnesium Hydroxide/Simethicone Susp 30 ML Cup PO ONE (18:03)
[2017-05-05] MEDS: Mirtazapine 15 MG Tab PO SCH (20:41)
[2017-05-05] MEDS: LORazepam 2 MG/ML MDV IVPUSH PRN (22:08)
[2017-05-06] MEDS: Levothyroxine 88 MCG Tab PO SCH (06:15)
[2017-05-06] MEDS ORDERED: Pantoprazole 40 MG Tab.CR PO SCH (09:00)
[2017-05-06] MEDS ORDERED: Enoxaparin 40 MG/0.4 ML Syringe SUBCUT SCH (09:00)
[2017-05-06] MEDS: Venlafaxine 75 MG Cap.ER PO SCH (09:18)
[2017-05-06] MEDS: ClonazePAM 1 MG Tab PO SCH (09:20)
[2017-05-06] MEDS: Carvedilol 3.125 MG Tab PO SCH (09:21)
[2017-05-06] MEDS: chlordiazePOXIDE 10 MG Cap PO SCH (09:21)
[2017-05-06 09:28] VITALS: BP 93/65
--- NOTE | 2017-05-06 12:01 | PCM.DCSUM1 ---
Discharge Summary - Hospital Course Free Text/Narrative:: Mr. Otilio Ogden is a 56-year-old male who presented to ED on 05/01/17 with generalized abdominal pain. The pain had reportedly started earlier in the day and was accompanied by nausea and vomiting. No urinary symptoms. He denied diarrhea or constipation however he has noticed a decrease in his bowel movements over the past several days. He denies fever or chills. He has had his appendix and gallbladder removed prior. He also had lymphoma. He reports his been depressed the past few weeks. He is medicated for this but there have been no changes. His temperature in the ED was 98.4, pulse 71, respirations 18 , BP 100/63, pulse ox was 97. Labs were obtained. His white count was normal at 7.42 hemoglobin 16.3, platelet 252,000, sodium 136, potassium 4.6, creatinine 0.8, glucose 119, AST was slightly slightly elevated at 45, PLT 50, alk phosphatase elevated at 275. His lipase was 113. UA was negative. His CT scan interpreted by Dr. Martinez revealed "dilated small bowel containing stool. Findings are suspicious firm mid small bowel obstruction. Etiology is not seen findings most likely due to adhesion. Other non-acute findings were also noted. " These findings were discussed with the patient and his mother and he was subsequently admitted to [facility] with telemetry. He is a patient of Dr. Tafoya. He is a DNR/DNI. Patient initally reported an NG tube was attempted to be placed last night and the patient tolerated the procedure poorly. After 2 attempts without success patient refused NG tube. Nurse reports patient is slightly developmentally delayed according to a conversation with the mother. They also report that the mother was not present during NG tube placement attempts. Patient reports multiple episodes of emesis overnight. Patient did have a BM the morning of his admission as well. Nursing also reported they have been attempting to educate patient on importance of NG tube. He was placed on nothing by mouth status. NG tube was attempted several times and at one point was placed in the lung, confirmed by chest x-ray. It was subsequently removed and patient was monitored for complications, none manifested. Suspected SBO began to rapidly improve and that afternoon patient had a large bowel movement. Patient has been continuing to have bowel movements. Nausea has subsided. Abdominal pain has resolved. His white count was elevated for 1 day, however that returned normal. CRP was 0.9. Throughout his stay nursing reported multiple times having found patient attempting to vomit with his fingers down his throat. It was initially believed this may be the result of patient's acute abdominal pain and his attempt to manage said pain. Discussed this with his mother and she reports has been an issue for some time. She believes once the patient gets nervous he attempts to vomit. At one point he was placed on 1:1 care to attempt to stop this behavior. Patient has also had a very liable mood. He frequently goes from talking to crying and back again. Dr. Bagley consult was ordered and meds were adjusted. This can be addressed further as outpatient, as patient reports having a good relationship with Dr. Bagley and Dr. Tafoya. He was offered services of [facility], however patient has interacted with them in the past and was not impressed. Dietitian met with patient and mother, as some concerns were raised regarding patient's dietary habits. Mother reports patient has an uncle who is a diabetic and has influenced patient's diet extensively. Patient can follow-up outpatient with dietitian. Patient's mother is the primary caregiver and prepares meals. She was involved extensively in plan of care with this patient. At this point he is medically stable he'll be discharged home with outpatient care. He is to follow-up with Dr. Tafoya within 1 week. - Discharge Data Discharge Date: 05/06/17 (Admit date: 05/02/17) Discharge Disposition: Home, Self-Care 01 Condition: Good - Discharge Diagnosis/Problem(s) (1) Partial small bowel obstruction SNOMED Code(s): 066363308 ICD Code: K56.69 - OTHER INTESTINAL OBSTRUCTION Status: Resolved Priority : Medium Current Visit: Yes (2) Bulimia nervosa, purging type SNOMED Code(s): 83853517 ICD Code: F50.2 - BULIMIA NERVOSA Status: Suspected Priority: High Current Visit: Yes (3) Anxiety about health SNOMED Code(s): 317120802 ICD Code: F41.8 - OTHER SPECIFIED ANXIETY DISORDERS Status: Acute Priority: Medium Current Visit: Yes (4) Hypothyroidism SNOMED Code(s): 13755502 ICD Code: E03.9 - HYPOTHYROIDISM, UNSPECIFIED Status: Chronic Priority: Low Current Visit: Yes Qualifiers: Hypothyroidism type: unspecified Qualified Code(s): E03.9 - Hypothyroidism , unspecified (5) Cardiomyopathy SNOMED Code(s): 82670930 ICD Code: I42.9 - CARDIOMYOPATHY, UNSPECIFIED Status: Chronic Priority: Low Current Visit: No (6) Anemia SNOMED Code(s): 211545684 ICD Code: D64.9 - ANEMIA, UNSPECIFIED Status: Chronic Priority: Low Current Visit: No Qualifiers: Anemia type: unspecified type Qualified Code(s): D64.9 - Anemia, unspecified (7) Restless leg syndrome SNOMED Code(s): 10690865 ICD Code: G25.81 - RESTLESS LEGS SYNDROME Status: Chronic Priority: Low Current Visit: No - Patient Summary/Data Consults: Consultations 05/02/17 13:14 Consult to Physician [CONS] Routine 05/03/17 10:00 Consult to Physician [CONS] Routine 05/03/17 14:49 Consult to Spiritual Care [CONS] Routine 05/03/17 14:50 Consult to Nut Blanker Operator [CONS] Routine 05/05/17 11:29 Consult to Beater Room Helper [CONS] Routine - Patient Instructions Diet: Heart Healthy Diet Diet, Other: Follow recommendations from school health assistant Activity: As Tolerated Driving: Do Not Drive Showering/Bathing: May Shower Notify Provider of: Fever, Increased Pain, Nausea and/or Vomiting Other/Special Instructions: Follow-up with Dr. Tafoya within 7-10 days. Follow- up with Dr. Bagley as needed - he will see patients outpatient here on clinic side. Utilize resources provided by manager social media. - Discharge Plan Prescriptions/Med Rec: chlordiazePOXIDE [Librium] 10 mg PO DAILY #30 cap Venlafaxine [Effexor XR] 150 mg PO DAILY #30 cap.er Home Medications: Home Meds Aspirin [Halfprin] 81 mg PO BRK 07/20/16 [History] ClonazePAM [KlonoPIN] 1 mg PO TID 07/20/16 [History] Cyanocobalamin (Vitamin B-12) [Vitamin B-12] 1,000 mcg PO ACBREAKFAST 07/20/16 [ History] Esomeprazole [NexIUM] 20 mg PO BID 07/20/16 [History] Levothyroxine Sodium [Levoxyl] 88 mcg PO ACBREAKFAST 07/20/16 [History] Ramipril [Altace] 5 mg PO BID 07/20/16 [History] traMADol [Ultram] 100 mg PO Q8H PRN 07/20/16 [History] Carvedilol [Coreg] 3.125 mg PO BID 05/01/17 [History] Ferrous Sulfate [Iron] 325 mg PO DAILY 05/01/17 [History] Mirtazapine 45 mg PO BEDTIME 05/01/17 [History] Venlafaxine [Effexor XR] 150 mg PO DAILY #30 cap.er 05/06/17 [Rx] chlordiazePOXIDE [Librium] 10 mg PO DAILY #30 cap 05/06/17 [Rx] Patient Handouts: Generalized Anxiety Disorder, Eating Disorders, Small Bowel Obstruction, [id number], Bulimia Nervosa Forms: ED Department Discharge Referrals: Wilmer Tafoya MD [Primary Care Provider] - Zackary Banuelos MD [Physician] - 05/20/17 11:15 am (for excessive weight loss , come to register at 10:45 and bring all insurance cards & photo ID to appointment ) - Discharge Summary/Plan Comment DC Time >30 min.: Yes (45) - General Info Date of Service: 05/06/17 Admission Dx/Problem (Free Text: Admission Diagnosis/Problem Admission Diagnosis/Problem Obstruction of colon Subjective Update: Patient denies any complaints. He is anxious about being discharged as soon as possible so he can get back to his [place] cd's. Functional Status: Reports: Pain Controlled, Tolerating Diet, Ambulating, Urinating. Denies: New Symptoms - Review of Systems General: Reports: No Symptoms HEENT: Reports: No Symptoms Pulmonary: Reports: No Symptoms Cardiovascular: Reports: No Symptoms Gastrointestinal: Reports: No Symptoms Genitourinary: Reports: No Symptoms Musculoskeletal: Reports: No Symptoms Skin: Reports: No Symptoms Neurological: Reports: No Symptoms Psychiatric: Reports: No Symptoms - Patient Data Vitals - Most Recent: Last Vital Signs Temp 97.3 F 05/06/17 08:57 Pulse 86 05/06/17 09:21 Resp 16 05/06/17 08:57 BP 93/65 05/06/17 09:21 Pulse Ox 97 05/06/17 08:57 Weight - Most Recent: 125 lb 8 oz I&O - Last 24 hours: Intake & Output 05/05/17 05/06/17 05/06/17 22:59 06:59 14:59 Intake Total 1040 900 120 Output Total 200 Balance 840 900 120 Lab Results - Last 24 hrs: Laboratory Results - last 24 hr 05/06/17 05/06/17 Range/Units 07:10 07:10 WBC 5.44 (4.23-9.07) K/mm3 RBC 4.36 L (4.63-6.08) M/mm3 Hgb 13.1 L (13.7-17.5) gm/L Hct 38.9 L (40.1-51.0) % MCV 89.2 (79.0-92.2) fl MCH 30.0 (25.7-32.2) pg MCHC 33.7 (32.2-35.5) g/dl RDW Std Deviation 42.6 (35.1-43.9) fL Plt Count 226 (163-337) K/mm3 MPV 9.7 (9.4-12.3) fl Neut % (Auto) 37.5 (34.0-67.9) % Lymph % (Auto) 45.2 (21.8-53.1) % [place] % (Auto) 14.3 H (5.3-12.2) % Eos % (Auto) 2.0 (0.8-7.0) Baso % (Auto) 0.4 (0.1-1.2) % Neut # (Auto) 2.04 (1.78-5.38) K/mm3 Lymph # (Auto) 2.46 (1.32-3.57) K/mm3 [place] # (Auto) 0.78 (0.30-0.82) K/mm3 Eos # (Auto) 0.11 (0.04-0.54) K/mm3 Baso # (Auto) 0.02 (0.01-0.08) K/mm3 Sodium 137 (136-145) mEq/L Potassium 3.7 (3.5-5.1) mEq/L Chloride 103 (98-107) mEq/L Carbon Dioxide 25 (21-32) mEq/L Anion Gap 12.7 (5-15) BUN 20 H (7-18) mg/dL Creatinine 0.6 L (0.7-1.3) mg/dL Est Cr Clr Drug Dosing 108.05 mL/min Estimated GFR (MDRD) > 60 (>60) mL/min BUN/Creatinine Ratio 33.3 H (14-18) Glucose 85 (74-106) mg/dL Calcium 7.7 L (8.5-10.1) mg/dL Med Orders - Current: Current Medications Benzocaine (Hurricaine 20% [place]) 0 ml MUCMEM Q4HR PRN PRN Reason: Pain Last Admin: 05/02/17 11:42 Dose: 3 sprays Bisacodyl (Dulcolax) 10 mg RECTAL BID PRN PRN Reason: Constipation Carvedilol (Coreg) 3.125 mg PO BID [facility] Last Admin: 05/06/17 09:21 Dose: 3.125 mg Chlordiazepoxide HCl (Librium) 10 mg PO DAILY [facility] Last Admin: 05/06/17 09:21 Dose: 10 mg Clonazepam (Klonopin) 1 mg PO TID [facility] Last Admin: 05/06/17 09:20 Dose: 1 mg Enoxaparin Sodium (Lovenox) 40 mg SUBCUT DAILY [facility] Last Admin: 05/06/17 09:18 Dose: 40 mg Hydralazine HCl (Apresoline) 20 mg IVPUSH Q4H PRN PRN Reason: Hypertension Levothyroxine Sodium (Synthroid) 88 mcg PO ACBREAKFAST [facility] Last Admin: 05/06/17 06:15 Dose: 88 mcg Lorazepam (Ativan) 1 mg IVPUSH Q8H PRN PRN Reason: Anxiety Last Admin: 05/05/17 22:08 Dose: 1 mg Metoprolol Tartrate (Lopressor) 5 mg IVPUSH Q4H PRN PRN Reason: Tachycardia Mirtazapine (Remeron) 45 mg PO BEDTIME [facility] Last Admin: 05/05/17 20:41 Dose: 45 mg Ondansetron HCl (Zofran) 4 mg IVPUSH Q4H PRN PRN Reason: Nausea Last Admin: 05/03/17 09:44 Dose: 4 mg Pantoprazole Sodium (Protonix) 40 mg PO DAILY [facility] Last Admin: 05/06/17 09:20 Dose: 40 mg Sodium Chloride (Saline Flush) 10 ml FLUSH ASDIRECTED PRN PRN Reason: Keep Vein Open Last Admin: 05/01/17 17:13 Dose: 10 ml Venlafaxine HCl (Effexor Xr) 150 mg PO DAILY [facility] Last Admin: 05/06/17 09:18 Dose: 150 mg Discontinued Medications Al Hydroxide/Mg Hydroxide (Mag-Al Plus) 30 ml PO ONETIME ONE Stop: 05/05/17 18:04 Last Admin: 05/05/17 18:07 Dose: 30 ml Bisacodyl (Dulcolax) 10 mg RECTAL DAILY [facility] Last Admin: 05/02/17 16:35 Dose: Not Given Bismuth Subsalicylate (Pepto Bismol) 30 ml PO ONETIME ONE Stop: 05/04/17 09:41 Last Admin: 05/04/17 10:49 Dose: 30 ml Clonazepam (Klonopin) 1 mg PO ONETIME ONE Stop: 05/01/17 23:24 Last Admin: 05/01/17 23:35 Dose: 1 mg Diatrizoate Meglum/Diatrizoate Sod (Gastrografin 37%) 120 ml PO ONETIME ONE Stop: 05/01/17 17:45 Last Admin: 05/01/17 18:16 Dose: 90 ml Enoxaparin Sodium (Lovenox) 40 mg SUBCUT DAILY [facility] Last Admin: 05/02/17 10:51 Dose: 40 mg Enoxaparin Sodium (Lovenox) 40 mg SUBCUT DAILY [facility] Last Admin: 05/04/17 08:20 Dose: 40 mg Enoxaparin Sodium (Lovenox) 30 mg SUBCUT DAILY [facility] Last Admin: 05/05/17 08:59 Dose: 30 mg Hydromorphone HCl (Dilaudid) 1 mg IVPUSH ONETIME ONE Stop: 05/01/17 18:06 Last Admin: 05/01/17 18:26 Dose: 1 mg Sodium Chloride (Normal Saline) 1,000 mls @ 1,000 mls/hr IV .BOLUS STA Stop: 05/01/17 17:42 Last Admin: 05/01/17 17:12 Dose: 1,000 mls/hr Sodium Chloride (Normal Saline) 1,000 mls @ 75 mls/hr IV ASDIRECTED [facility] Last Admin: 05/01/17 21:13 Dose: 75 mls/hr Magnesium Sulfate 2 gm/ Premix 50 mls @ 25 mls/hr IV ONETIME ONE Stop: 05/02/17 01:58 Last Admin: 05/02/17 00:27 Dose: 25 mls/hr Sodium Chloride (Normal Saline) 1,000 mls @ 100 mls/hr IV ASDIRECTED [place] Stop: 05/02/17 18:00 Sodium Chloride (Normal Saline) 1,000 mls @ 150 mls/hr IV ASDIRECTED [facility] Stop: 05/02/17 17:09 Last Admin: 05/02/17 10:52 Dose: 150 mls/hr Sodium Chloride (Normal Saline) 1,000 mls @ 40 mls/hr IV ASDIRECTED [facility] Last Admin: 05/03/17 18:27 Dose: 40 mls/hr Sodium Chloride (Normal Saline) 1,000 mls @ 75 mls/hr IV ASDIRECTED [facility] Last Admin: 05/04/17 14:45 Dose: 75 mls/hr Sodium Chloride (Normal Saline) 1,000 mls @ 75 mls/hr IV ASDIRECTED [facility] Stop: 05/05/17 03:00 Iopamidol (Isovue-300 (61%)) 100 ml IVPUSH ONETIME ONE Stop: 05/01/17 17:45 Last Admin: 05/01/17 18:16 Dose: 100 ml Ketorolac Tromethamine (Toradol) 15 mg IVPUSH ONETIME ONE Stop: 05/02/17 11:00 Last Admin: 05/02/17 11:37 Dose: 15 mg Lorazepam (Ativan) 1 mg IVPUSH ONETIME ONE Stop: 05/02/17 09:42 Last Admin: 05/02/17 10:01 Dose: 1 mg Lorazepam (Ativan) 1 mg IVPUSH ONETIME ONE Stop: 05/03/17 14:42 Last Admin: 05/03/17 14:59 Dose: 1 mg Mirtazapine 45mg Tab (Own Med) 1 each PO ONETIME ONE Stop: 05/01/17 23:21 Last Admin: 05/01/17 23:35 Dose: 1 each Ondansetron HCl (Zofran) 4 mg IVPUSH ONETIME ONE Stop: 05/01/17 18:08 Last Admin: 05/01/17 18:25 Dose: 4 mg Pantoprazole Sodium (Protonix Iv) 40 mg IVPUSH BID [facility] Last Admin: 05/05/17 08:58 Dose: 40 mg Phenylephrine HCl ([place]-Synephrine 0.25% Mild Nasal [place]) 0 ml [place] ONETIME ONE Stop: 05/02/17 11:46 Last Admin: 05/02/17 11:44 Dose: 3 spray Sodium Chloride (Saline Flush) 10 ml FLUSH ONETIME PRN PRN Reason: IV FLUSH Last Admin: 05/01/17 18:16 Dose: 10 ml Venlafaxine HCl (Effexor Xr) 112.5 mg PO DAILY [facility] Last Admin: 05/03/17 08:11 Dose: 112.5 mg - Exam General: Reports: Alert, Oriented, Cooperative HEENT: Reports: Pupils Equal, Pupils Reactive, Mucous Membr. Moist/[place] Neck: Reports: Supple, Trachea Midline, No JVD Lungs: Reports: Clear to Auscultation, Normal Respiratory Effort Cardiovascular: Reports: Regular Rate, Regular Rhythm GI/Abdominal Exam: Normal Bowel Sounds, Soft, Non-Tender, No Organomegaly, No Distention, No Abnormal Bruit, No Mass (Male) Exam: Deferred Rectal (Males) Exam: Deferred Back Exam: Reports: Normal Inspection, Full Range of Motion Extremities: Normal Inspection, Normal Range of Motion, Non-Tender, No Pedal Edema, Normal Capillary Refill Skin: Reports: Warm, Dry, Intact Neurological: Reports: No New Focal Deficit Psy/Mental Status: Reports: Alert, Labile Mood, Anxious, Depressed Physical Findings Comments:: Patient has been walking around hospital for past 2 days without complications. His food intake has increased and he has been increased to full cardiac diet. This was tolerated well. Nursing has not observed patient attempting to induce vomiting for several days. At one point he as on 1:1 care to prevent this. *Q Meaningful Use (DIS) - VTE *Q VTE Criteria *Q: - Stroke *Q Stroke Criteria *Q: - AMI *Q AMI Criteria *Q:
== END 2017-05-06 13:10 | disposition home or self-care (01) | DRG 389 ==
LOC: JD.ED 16:08 → JD.MS 21:31 → OBSVTOIN 05-02 11:27
PROVIDERS: ADMIT Internal Medicine Cardiovascular Disease; ATTEND Internal Medicine Cardiovascular Disease
DX: K56.60 Unspecified intestinal obstruction (principal); K56.69 Other intestinal obstruction; I42.9 Cardiomyopathy, unspecified; I47.2 Ventricular tachycardia; F50.2 Bulimia nervosa; N17.9 Acute kidney failure, unspecified; F33.3 Major depressive disorder, recurrent, severe with psychotic symptoms; F84.0 Autistic disorder; E03.9 Hypothyroidism, unspecified; D64.9 Anemia, unspecified; G25.81 Restless legs syndrome; K59.00 Constipation, unspecified; F32.9 Major depressive disorder, single episode, unspecified; E86.0 Dehydration; F41.9 Anxiety disorder, unspecified; Z66 Do not resuscitate; K21.9 Gastro-esophageal reflux disease without esophagitis; M41.9 Scoliosis, unspecified; E53.8 Deficiency of other specified B group vitamins; Z85.72 Personal history of non-Hodgkin lymphomas; Z91.012 Allergy to eggs; Z91.011 Allergy to milk products; Z79.82 Long term (current) use of aspirin; Z79.899 Other long term (current) drug therapy
CPT/HCPCS: 36415 ×2; 74177; 80048; 80053; 81001; 83690; 83735; 84443; 85025 ×2; 86140; 96361; 96374; 96375; 97162; 99285; A9270 ×2; J1170; J1650; J2060; J2405 ×3; J7040 ×3; J7050 ×2; Q9963; Q9967; 71010; 71010-26; 96365; 96366; 96372; 96376; 97165-GO; 99284; C9113; G0378; J1885; J3475

== ENCOUNTER 2019-07-27 10:21 | Emergency (ER) | payer MEDICARE, MEDICAID ==
[2019-07-27] MEDS ORDERED: LORazepam 1 MG Tab PO ONE (11:08)
--- NOTE | 2019-07-27 11:54 | EDM.PDOC ---
ED HPI GENERAL MEDICAL PROBLEM - General Chief Complaint: Respiratory Problem Stated Complaint: [facility] Time Seen by Provider: 07/27/19 10:58 Source of Information: Reports: Patient, Family (mother) - History of Present Illness INITIAL COMMENTS - FREE TEXT/NARRATIVE: 58 year old male with dyspnea, anxiety, what sounds like panic attack. On EMS arrrival he was hyperventilating but also C/O of being very short of breath. He has chronic depression, anxiety. His tramadol and clonazepam was stopped about 2 weeks ago. He has occasional chronic cough with some phlegm but not much more than usual. No known fever or chills. He was given oxygen by EMS, sats up to 100 % on arrival to ED. Still feels very anxious and restless but now only mild dyspnea. - Related Data Allergies Allergy/AdvReac Type Severity Reaction Status Date / Time Dairy Products Allergy Abdominal Verified 07/27/19 10:27 Cramps egg Allergy Cannot Verified 07/27/19 10:27 Remember Home Meds: Home Meds Aspirin [[place] Aspirin] 81 mg PO DAILY 07/27/19 [History] Carvedilol [Coreg] 3.125 mg PO BID 07/27/19 [History] Esomeprazole Magnesium [Nexium] 40 mg PO DAILY 07/27/19 [History] Levothyroxine [Synthroid] 88 mcg PO ACBREAKFAST 07/27/19 [History] Ramipril [Altace] 5 mg PO BID 07/27/19 [History] Sertraline HCl 50 mg PO DAILY 07/27/19 [History] clonazePAM [Clonazepam] 0.5 mg PO BEDTIME #10 tab.rapdis 07/27/19 [Rx] traMADol HCl [Tramadol HCl] 50 mg PO Q6H PRN 07/27/19 [History] Past Medical History HEENT History: Reports: Other (See Below) 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 Cardiovascular History: Reports: Cardiomyopathy, Other (See Below) Other Cardiovascular History: apex damage Respiratory History: Reports: None Gastrointestinal History: Reports: GERD, Hemorrhoids Genitourinary History: Reports: None Musculoskeletal History: Reports: Other (See Below) Other Musculoskeletal History: scoliosis Neurological History: Reports: Other (See Below) Other Neuro History: restless leg syndrome Psychiatric History: Reports: Anxiety, Autism, Depression, Panic Attack Endocrine/Metabolic History: Reports: Hypothyroidism Hematologic History: Reports: Anemia, B12 Deficiency Oncologic (Cancer) History: Reports: Lymphoma Dermatologic History: Reports: None - Past Surgical History HEENT Surgical History: Reports: Tonsillectomy GI Surgical History: Reports: Small Bowel, Other (See Below) Other GI Surgeries/Procedures: removed 20 inches of small bowel d/t lymphoma Other Oncologic Surgeries/Procedures: lymphoma removals twice. Social & Family History - Family History Family Medical History: Noncontributory - Tobacco Use Smoking Status *Q: Never Smoker - Caffeine Use Caffeine Use: Reports: None - Recreational Drug Use Recreational Drug Use: No ED ROS GENERAL - Review of Systems Review Of Systems: See Below Constitutional: Denies: Fever, Chills, Diaphoresis HEENT: Denies: Rhinitis, Sinus Problem, Throat Pain Respiratory: Reports: Shortness of Breath, Cough, Sputum Cardiovascular: Denies: Chest Pain GI/Abdominal: Denies: Abdominal Pain, Nausea, Vomiting Musculoskeletal: Denies: Shoulder Pain, Arm Pain, Back Pain Neurological: Reports: Dizziness. Denies: Numbness, Tingling, Trouble Speaking , Weakness ED EXAM, GENERAL - Physical Exam Exam: See Below General Appearance: Alert, Anxious Eye Exam: Bilateral Eye: PERRL Throat/Mouth: Normal Inspection, Normal Oropharynx Head: Atraumatic. No: Facial Swelling Neck: Supple, Full Range of Motion Respiratory/Chest: No Respiratory Distress, Lungs Clear, Normal Breath Sounds Cardiovascular: Regular Rate, Rhythm GI/Abdominal: Soft, Non-Tender Extremities: Normal Inspection, Normal Range of Motion. No: Pedal Edema, Leg Pain, Redness Neurological: Alert, Oriented, No Motor/Sensory Deficits Skin Exam: Warm, Dry, Normal Color Course - Vital Signs Last Recorded V/S: Last Vital Signs Temp 98.6 F 07/27/19 13:45 Pulse 64 07/27/19 13:45 Resp 16 07/27/19 13:45 BP 95/76 07/27/19 13:45 Pulse Ox 98 07/27/19 13:45 - Orders/Labs/Meds Labs: Laboratory Tests 07/27/19 07/27/19 07/27/19 Range/Units 10:30 10:30 11:25 WBC 6.80 (4.23-9.07) K/mm3 RBC 5.46 (4.63-6.08) M/mm3 Hgb 16.4 (13.7-17.5) gm/dl Hct 49.2 (40.1-51.0) % MCV 90.1 (79.0-92.2) fl MCH 30.0 (25.7-32.2) pg MCHC 33.3 (32.2-35.5) g/dl RDW Std Deviation 47.5 H (35.1-43.9) fL Plt Count 278 (163-337) K/mm3 MPV 9.6 (9.4-12.3) fl Neut % (Auto) 52.6 (34.0-67.9) % Lymph % (Auto) 38.2 (21.8-53.1) % [place] % (Auto) 8.1 (5.3-12.2) % Eos % (Auto) 0.4 L (0.8-7.0) Baso % (Auto) 0.3 (0.1-1.2) % Neut # (Auto) 3.57 (1.78-5.38) K/mm3 Lymph # (Auto) 2.60 (1.32-3.57) K/mm3 [place] # (Auto) 0.55 (0.30-0.82) K/mm3 Eos # (Auto) 0.03 L (0.04-0.54) K/mm3 Baso # (Auto) 0.02 (0.01-0.08) K/mm3 Puncture Site Lt radial ABG pH 7.47 H (7.35-7.45) ABG pCO2 30.6 L (35.0-45.0) mmHg ABG pO2 83.0 (80.0-100.0) mmHg ABG HCO3 21.7 L (22.0-26.0) meq/L ABG O2 Saturation 95.2 L (96.0-97.0) % ABG Base Excess -0.5 (-2-2.0) Ancelmo Test Positive A-a Gradient 29 mmHg O2 Delivery Device Room air FiO2 21.00 (21.00-100.00) % Sodium 141 (136-145) mEq/L Potassium 3.8 (3.5-5.1) mEq/L Chloride 103 (98-107) mEq/L Carbon Dioxide 29 (21-32) mEq/L Anion Gap 12.8 (5-15) BUN 17 (7-18) mg/dL Creatinine 0.7 (0.7-1.3) mg/dL Est Cr Clr Drug Dosing TNP Estimated GFR (MDRD) > 60 (>60) mL/min BUN/Creatinine Ratio 24.3 H (14-18) Glucose 104 (74-106) mg/dL Calcium 9.1 (8.5-10.1) mg/dL Total Bilirubin 0.7 (0.2-1.0) mg/dL AST 40 H (15-37) U/L ALT 92 H (16-63) U/L Alkaline Phosphatase 266 H (46-116) U/L Total Protein 6.7 (6.4-8.2) g/dl Albumin 3.9 (3.4-5.0) g/dl Globulin 2.8 gm/dL Albumin/Globulin Ratio 1.4 (1-2) Meds: Medications Discontinued Medications Generic Name Dose Route Start Last Admin Trade Name Freq PRN Reason Stop Dose Admin Lorazepam 1 mg 07/27/19 11:08 07/27/19 11:27 Ativan PO 07/27/19 11:09 1 mg ONETIME ONE Administration - Re-Assessments/Exams Free Text/Narrative Re-Assessment/Exam: 07/27/19 19:43 Hx from patient and mother is vague, unclear why the clonazepam was stopped but after visiting with Thaddeus, pharmacist at [facility] it seems that he overused his prior prescription and ran out early. I have written for ten 0.5 mg tablets to take at night only to try help bridge him along for now. I did try call Bijan but today was his day off. Discharge instr. as documented. Departure - Departure Time of Disposition: 13:31 Disposition: Home, Self-Care 01 Condition: Fair Clinical Impression: Panic attack as reaction to stress, Anxiety - Discharge Information Prescriptions: clonazePAM [Clonazepam] 0.5 mg PO BEDTIME #10 tab.rapdis Instructions: Panic Attack, [id number], Living With Anxiety Referrals: Wilmer Tafoya MD [Primary Care Provider] - Forms: ED Department Discharge Additional Instructions: clonazepam 0.5 mg once daily in the evening or at bedtime. Call or go to [facility] today to set up telemed referral for one of the [place] [facility] next available appointment. See Bijan at our [facility] clinic in about 1 week. Call [phone] for appointment.
[2019-07-27 13:55] VITALS: BP 95/76; PULSE 64
--- NOTE | 2019-07-27 15:03 | CR ---
Chest: Two views of the chest were obtained. Comparison: Prior chest x-ray of 07/12/19. Heart size and mediastinum are normal. Lungs are hyperinflated compatible with emphysematous change. No acute parenchymal change is appreciated. Bony structures are unremarkable. Impression: 1. Nothing acute is appreciated on two-view chest x-ray. Diagnostic code #2 This report was dictated in [place] Standard Time
== END 2019-07-27 13:50 | disposition home or self-care (01) ==
LOC: JD.ED 10:21
DX: F41.0 Panic disorder [episodic paroxysmal anxiety] (principal); F43.9 Reaction to severe stress, unspecified; F32.9 Major depressive disorder, single episode, unspecified; Z79.82 Long term (current) use of aspirin; Z79.890 Hormone replacement therapy; Z79.899 Other long term (current) drug therapy; Z91.011 Allergy to milk products; Z91.012 Allergy to eggs
CPT/HCPCS: 36415; 36600; 71046; 80053; 82803; 85025; 99285; A9270; 99283

== ENCOUNTER 2020-04-26 19:05 | Emergency (ER) | payer MEDICARE, MEDICAID ==
[2020-04-26 19:19] VITALS: BP 104/76; PULSE 60
--- NOTE | 2020-04-26 19:52 | EDM.PDOC ---
ED HPI GENERAL MEDICAL PROBLEM - General Chief Complaint: General Stated Complaint: RIB PAIN Time Seen by Provider: 04/26/20 19:22 Source of Information: Reports: Patient History Limitations: Reports: No Limitations - History of Present Illness INITIAL COMMENTS - FREE TEXT/NARRATIVE: The patient presents with right rib pain. He said about a week ago he was throwing away a commode and he hurt his right anterior chest. Since then he has had pain with breathing or movement. He has some shortness of breath with it at times. He has no fever, chills, cough, congestion, runny nose, abdominal pain, nausea or vomiting. He has a history of MS and cardiomyopathy. He has no edema or swelling in his legs. Onset: Gradual Duration: Week(s): Location: Reports: Chest Severity: Moderate Improves with: Reports: Immobilization Worsens with: Reports: Breathing, Movement Context: Reports: Activity (He was throwing something away when this started.) Associated Symptoms: Reports: Chest Pain, Shortness of Breath Right Thoracic Pain Score (Numeric/FACES): 9 - Related Data Allergies Allergy/AdvReac Type Severity Reaction Status Date / Time Dairy Products Allergy Abdominal Verified 04/26/20 19:56 Cramps egg Allergy Cannot Verified 04/26/20 19:56 Remember Home Meds: Home Meds Aspirin [Galax Aspirin] 81 mg PO DAILY 07/27/19 [History] Esomeprazole Magnesium [Nexium] 40 mg PO DAILY 07/27/19 [History] Levothyroxine [Synthroid] 88 mcg PO ACBREAKFAST 07/27/19 [History] Sertraline HCl 50 mg PO DAILY 07/27/19 [History] carvediloL [Coreg] 3.125 mg PO BID 07/27/19 [History] clonazePAM [Clonazepam] 0.5 mg PO BEDTIME #10 tab.rapdis 07/27/19 [Rx] ramipriL [Altace] 5 mg PO BID 07/27/19 [History] traMADol HCl [Tramadol HCl] 50 mg PO Q6H PRN 07/27/19 [History] Past Medical History HEENT History: Reports: Other (See Below) 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 Cardiovascular History: Reports: Cardiomyopathy, Other (See Below) Other Cardiovascular History: apex damage Respiratory History: Reports: None Gastrointestinal History: Reports: GERD, Hemorrhoids Genitourinary History: Reports: None Musculoskeletal History: Reports: Other (See Below) Other Musculoskeletal History: scoliosis Neurological History: Reports: Other (See Below) Other Neuro History: restless leg syndrome Psychiatric History: Reports: Anxiety, Autism, Depression, Panic Attack Endocrine/Metabolic History: Reports: Hypothyroidism Hematologic History: Reports: Anemia, B12 Deficiency Oncologic (Cancer) History: Reports: Lymphoma Dermatologic History: Reports: None - Past Surgical History HEENT Surgical History: Reports: Tonsillectomy GI Surgical History: Reports: Small Bowel, Other (See Below) Other GI Surgeries/Procedures: removed 20 inches of small bowel d/t lymphoma Other Oncologic Surgeries/Procedures: lymphoma removals twice. Social & Family History - Family History Family Medical History: Noncontributory - Caffeine Use Caffeine Use: Reports: None ED ROS GENERAL - Review of Systems Review Of Systems: See Below Constitutional: Reports: No Symptoms HEENT: Reports: No Symptoms Respiratory: Reports: Shortness of Breath Cardiovascular: Reports: Chest Pain Endocrine: Reports: No Symptoms GI/Abdominal: Reports: No Symptoms : Reports: No Symptoms Musculoskeletal: Reports: No Symptoms ED EXAM, GENERAL - Physical Exam Exam: See Below Exam Limited By: No Limitations General Appearance: Alert, No Apparent Distress Ears: Normal External Exam Nose: Normal Inspection Head: Atraumatic, Normocephalic Neck: Normal Inspection Respiratory/Chest: No Respiratory Distress, Lungs Clear, Normal Breath Sounds Cardiovascular: Regular Rate, Rhythm, No Edema, No Murmur, Other (Pain upon palpation to the right chest) GI/Abdominal: Soft, Non-Tender, No Organomegaly, No Mass Back Exam: Normal Inspection Extremities: Normal Inspection EKG INTERPRETATION EKG Date: 04/26/20 Time: 19:42 Rhythm: Other (sinus bradycardia) Rate (Beats/Min): 53 [place]: Normal P-Wave: Present QRS: LBBB ST-T: Normal QT: Normal Course - Vital Signs Last Recorded V/S: Last Vital Signs Temp 97.9 F 04/26/20 19:16 Pulse 60 04/26/20 19:16 Resp 18 04/26/20 19:16 BP 104/76 04/26/20 19:16 Pulse Ox - Orders/Labs/Meds Orders: Active Orders 24 hr Category Date Time Status Cardiac Monitoring [RC] . DIRECTED Care 04/26/20 19:36 Active EKG Documentation Completion [RC] STAT Care 04/26/20 19:36 Active Peripheral IV Care [RC] . DIRECTED Care 04/26/20 20:51 Active Ang Chest [CT] Stat Exams 04/26/20 21:15 Taken PTT,PARTIAL THROMBOPLSTIN TIME [COAG] Stat Lab 04/26/20 19:50 Received Heparin Sodium/D5W [Heparin 25,000 Units in D5W 500 ML] Med 04/26/20 22:15 Active 25,000 units in 500 ml IV TITRATE Sodium Chloride 0.9% [Saline Flush] Med 04/26/20 20:51 Active 10 ml FLUSH ASDIRECTED PRN Peripheral IV Insertion Adult [OM.PC] Routine Oth 04/26/20 20:51 Ordered Medication Orders Heparin Sodium/Dextrose (Heparin 25,000 Units In D5w 500 Ml) 25,000 units in 500 mls @ 19.051 mls/hr IV TITRATE [place]; Protocol Last Admin: 04/26/20 22:19 Dose: 14 units/kg/hr, 19.051 mls/hr Documented by: KATY Cosigned by: FARTUN Sodium Chloride (Saline Flush) 10 ml FLUSH ASDIRECTED PRN PRN Reason: Keep Vein Open Last Admin: 04/26/20 21:18 Dose: 10 ml Documented by: KATY Labs: Laboratory Tests 04/26/20 04/26/20 04/26/20 Range/Units 19:50 19:50 19:50 WBC 6.86 (4.23-9.07) K/mm3 RBC 4.62 L (4.63-6.08) M/mm3 Hgb 13.6 L D (13.7-17.5) gm/dl Hct 42.6 (40.1-51.0) % MCV 92.2 (79.0-92.2) fl MCH 29.4 (25.7-32.2) pg MCHC 31.9 L (32.2-35.5) g/dl RDW Std Deviation 53.5 H (35.1-43.9) fL Plt Count 275 (163-337) K/mm3 MPV 10.1 (9.4-12.3) fl Neut % (Auto) 47.8 (34.0-67.9) % Lymph % (Auto) 40.4 (21.8-53.1) % [place] % (Auto) 9.0 (5.3-12.2) % Eos % (Auto) 2.3 (0.8-7.0) Baso % (Auto) 0.4 (0.1-1.2) % Neut # (Auto) 3.27 (1.78-5.38) K/mm3 Lymph # (Auto) 2.77 (1.32-3.57) K/mm3 [place] # (Auto) 0.62 (0.30-0.82) K/mm3 Eos # (Auto) 0.16 (0.04-0.54) K/mm3 Baso # (Auto) 0.03 (0.01-0.08) K/mm3 D-Dimer, Quantitative 0.59 H (0.19-0.50) mg/L Sodium 140 (136-145) mEq/L Potassium 4.4 (3.5-5.1) mEq/L Chloride 107 (98-107) mEq/L Carbon Dioxide 25 (21-32) mEq/L Anion Gap 12.4 (5-15) BUN 16 (7-18) mg/dL Creatinine 0.8 (0.7-1.3) mg/dL Est Cr Clr Drug Dosing TNP Estimated GFR (MDRD) > 60 (>60) mL/min BUN/Creatinine Ratio 20.0 H (14-18) Glucose 120 H (80-115) mg/dL Calcium 8.1 L (8.5-10.1) mg/dL Total Bilirubin 0.3 (0.2-1.0) mg/dL AST 52 H (15-37) U/L ALT 75 H (16-63) U/L Alkaline Phosphatase 243 H (46-116) U/L Troponin I 0.162 H* (0.00-0.056) ng/mL Total Protein 5.3 L (6.4-8.2) g/dl Albumin 2.6 L (3.4-5.0) g/dl Globulin 2.7 gm/dL Albumin/Globulin Ratio 1.0 (1-2) COVID-19 (AVEL) (NEGATIVE) 04/26/20 Range/Units 21:22 WBC (4.23-9.07) K/mm3 RBC (4.63-6.08) M/mm3 Hgb (13.7-17.5) gm/dl Hct (40.1-51.0) % MCV (79.0-92.2) fl MCH (25.7-32.2) pg MCHC (32.2-35.5) g/dl RDW Std Deviation (35.1-43.9) fL Plt Count (163-337) K/mm3 MPV (9.4-12.3) fl Neut % (Auto) (34.0-67.9) % Lymph % (Auto) (21.8-53.1) % [place] % (Auto) (5.3-12.2) % Eos % (Auto) (0.8-7.0) Baso % (Auto) (0.1-1.2) % Neut # (Auto) (1.78-5.38) K/mm3 Lymph # (Auto) (1.32-3.57) K/mm3 [place] # (Auto) (0.30-0.82) K/mm3 Eos # (Auto) (0.04-0.54) K/mm3 Baso # (Auto) (0.01-0.08) K/mm3 D-Dimer, Quantitative (0.19-0.50) mg/L Sodium (136-145) mEq/L Potassium (3.5-5.1) mEq/L Chloride (98-107) mEq/L Carbon Dioxide (21-32) mEq/L Anion Gap (5-15) BUN (7-18) mg/dL Creatinine (0.7-1.3) mg/dL Est Cr Clr Drug Dosing Estimated GFR (MDRD) (>60) mL/min BUN/Creatinine Ratio (14-18) Glucose (80-115) mg/dL Calcium (8.5-10.1) mg/dL Total Bilirubin (0.2-1.0) mg/dL AST (15-37) U/L ALT (16-63) U/L Alkaline Phosphatase (46-116) U/L Troponin I (0.00-0.056) ng/mL Total Protein (6.4-8.2) g/dl Albumin (3.4-5.0) g/dl Globulin gm/dL Albumin/Globulin Ratio (1-2) COVID-19 (AVEL) Negative (NEGATIVE) Meds: Medications Generic Name Dose Route Start Last Admin Trade Name Freq PRN Reason Stop Dose Admin Heparin Sodium/Dextrose 25,000 units in 500 mls @ 19.051 mls/hr 04/26/20 22:15 04/26/20 22:19 Heparin 25,000 Units In D5w 500 Ml IV 14 units/kg/hr TITRATE [place] 19.051 mls/hr Administration Protocol 14 UNITS/KG/HR Sodium Chloride 10 ml 04/26/20 20:51 04/26/20 21:18 Saline Flush FLUSH 10 ml ASDIRECTED PRN Administration Keep Vein Open Discontinued Medications Generic Name Dose Route Start Last Admin Trade Name Freq PRN Reason Stop Dose Admin Aspirin 324 mg 04/26/20 20:51 04/26/20 21:00 Aspirin PO 04/26/20 20:52 324 mg ONETIME ONE Administration Heparin Sodium (Porcine) 4,000 units 04/26/20 22:10 04/26/20 22:18 Heparin Sodium IVPUSH 04/26/20 22:11 4,000 units .BOLUS ONE Administration Sodium Chloride 100 mls @ 4 mls/sec 04/26/20 22:01 04/26/20 22:02 Normal Saline IV 04/26/20 22:02 4 mls/sec ONETIME ONE Administration Iopamidol 100 ml 04/26/20 22:01 04/26/20 22:02 Isovue-370 (76%) IVPUSH 04/26/20 22:02 100 ml ONETIME ONE Administration - Re-Assessments/Exams Free Text/Narrative Re-Assessment/Exam: 04/26/20 21:52 I ordered a EKG, CXR and labs. His EKG shows a sinus bradycardia and LBBB. He has a history of LBBB. His CXR shows no fractures. His CBC looks good. His D- dimer was slightly elevated at 0.59. His glucose was elevated at 120. His AST was elevated at 52. His ALT was elevated at 75. His alk phos was elevated at 243. His troponin is elevated at 0.162. I then ordered an IV saline lock and gave him some aspirin. I have ordered a CT angio of his chest. 04/26/20 22:[address] angio of his chest shows no pulmonary embolus. Multiple pulmonary nodules bilaterally, largest measuring 14mm in the superior segment right lower lobe. Extensive emphysematous changes bilaterally. Small bilateral pleural effusions. I ordered a heparin bolus and drip. He is having a nonSTEMI. He needs to go see cardiology. [facility] are [facility]. I called [facility] in [place] and talked with Dr Mcclendon the hospitalist director internal control and she accepted the patient. He will be going by [place]. Departure - Departure Time of Disposition: 22:45 Disposition: DC/Tfer to Acute Hospital 02 Condition: Serious Clinical Impression: Non-STEMI (non-ST elevated myocardial infarction), Pulmonary nodules Emphysema of lung Qualifiers: Emphysema type: unspecified Qualified Code(s): J43.9 - Emphysema, unspecified - Discharge Information Referrals: Haider Montemayor PA-C [Primary Care Provider] - Forms: ED Department Discharge Sepsis Event Note (ED) - Evaluation Sepsis Screening Result: No Definite Risk - Focused Exam Vital Signs: Vital Signs Temp Pulse Resp BP 04/26/20 19:16 97.9 F 60 18 104/76 - My Orders Last 24 Hours: My Active Orders 04/26/20 19:36 Cardiac Monitoring [RC] . DIRECTED EKG Documentation Completion [RC] STAT 04/26/20 19:50 PTT,PARTIAL THROMBOPLSTIN TIME [COAG] Stat 04/26/20 20:51 Peripheral IV Care [RC] . DIRECTED Sodium Chloride 0.9% [Saline Flush] 10 ml FLUSH ASDIRECTED PRN Peripheral IV Insertion Adult [OM.PC] Routine 04/26/20 21:15 Ang Chest [CT] Stat 04/26/20 22:15 Heparin Sodium/D5W [Heparin 25,000 Units in D5W 500 ML] 25,000 units in 500 ml IV TITRATE - Assessment/Plan Last 24 Hours: My Active Orders 04/26/20 19:36 Cardiac Monitoring [RC] . DIRECTED EKG Documentation Completion [RC] STAT 04/26/20 19:50 PTT,PARTIAL THROMBOPLSTIN TIME [COAG] Stat 04/26/20 20:51 Peripheral IV Care [RC] . DIRECTED Sodium Chloride 0.9% [Saline Flush] 10 ml FLUSH ASDIRECTED PRN Peripheral IV Insertion Adult [OM.PC] Routine 04/26/20 21:15 Ang Chest [CT] Stat 04/26/20 22:15 Heparin Sodium/D5W [Heparin 25,000 Units in D5W 500 ML] 25,000 units in 500 ml IV TITRATE
[2020-04-26] MEDS ORDERED: Aspirin 81 MG Tab.Chew PO ONE (20:51)
[2020-04-26] MEDS ORDERED: Sodium Chloride 0.9% 10 ML Syringe FLUSH PRN (20:51)
--- NOTE | 2020-04-26 21:05 | CR ---
Chest: 2 views of the chest were obtained. Comparison: Prior chest x-ray of 07/27/19. Slight increasing patchy areas of density are noted on both sides of the chest. Findings may represent irregular pulmonary vascular congestion caused by emphysematous change. Findings otherwise could represent patchy areas of bronchopneumonia either viral or bacterial in etiology. Heart is slightly enlarged. Upper mediastinum is normal. Bony structures are unremarkable. Impression: 1. Emphysematous change. 2. Slight increased patchy densities within both sides of chest with differential as described above. Diagnostic code #3 Study was dictated in MDT
[2020-04-26] MEDS ORDERED: Iopamidol 755 Mg/ML 100 ML Bottle IVPUSH ONE (22:01)
[2020-04-26] MEDS ORDERED: Sodium Chloride 0.9% 100 ML IV ONE (22:01)
[2020-04-26] MEDS ORDERED: Heparin Sodium 5,000 Units/ML Vial IVPUSH ONE (22:10)
[2020-04-26] MEDS ORDERED: Heparin Sodium/D5W 25,000 UNITS/500 ML BAG IV SCH (22:15)
--- NOTE | 2020-04-27 06:43 | CT ---
CT chest Technique: Multiple axial sections through the chest were obtained. Intravenous contrast was utilized. Study has been performed as a CT pulmonary angiogram. Comparison: Prior chest CT study of 10/27/12 Pulmonary arteries are well-opacified. No filling defects are seen to indicate pulmonary embolism. Small bilateral pleural effusions are noted. Aorta shows no aneurysm. Mediastinum shows no adenopathy. No axillary adenopathy is identified. Visualized upper abdominal structures show nothing acute. Diffuse emphysematous changes are present. Groundglass appearance is noted within the upper and lower lungs compatible with interstitial fibrosis. Areas of scarring are noted within both lung bases. Slightly spiculated nodule abutting the pleura is identified within the superior segment right lung base measuring about 1.4 cm. This is not seen on previous exam. Several other smaller nodules are noted believed to be fairly stable. Bone window settings were reviewed which shows no acute osseous finding. Impression: 1. 1.4 cm nodule within the superior segment of the right lower lobe showing spiculated margins. Small area of neoplasm is a strong possibility. 2. No findings of pulmonary embolism. 3. Severe emphysematous change with scattered areas of scarring and pulmonary fibrosis. 4. Small nonspecific bilateral pleural effusions. Diagnostic code #9 I agree with preliminary report issued by [facility] ([facility] preliminary report dictated on 04/26/20, 11:26 PM Central Daylight Time) Study was dictated in MDT
== END 2020-04-26 23:30 ==
LOC: JD.ED 19:05
DX: I21.4 Non-ST elevation (NSTEMI) myocardial infarction (principal); R91.1 Solitary pulmonary nodule; J43.9 Emphysema, unspecified; K21.9 Gastro-esophageal reflux disease without esophagitis; F41.9 Anxiety disorder, unspecified; F32.9 Major depressive disorder, single episode, unspecified; F84.0 Autistic disorder; M41.9 Scoliosis, unspecified; E03.9 Hypothyroidism, unspecified; Z91.011 Allergy to milk products; Z91.012 Allergy to eggs; Z79.82 Long term (current) use of aspirin; Z79.899 Other long term (current) drug therapy; Z20.828 Contact with and (suspected) exposure to other viral communicable diseases
CPT/HCPCS: 36415; 71046; 71275; 80053; 84484; 85025; 85379; 85730; 93005; 96365; 96376; 99285; A9270; J1644; J7050; Q9967; U0002